=== PATIENT | male | born 1935 | race Caucasian/White ===

== ENCOUNTER 2018-07-24 12:49 | Inpatient (IN) | payer MEDICARE, OTHER ==
[~2018-07-24] VITALS: Ht 177.8 cm; Wt 79.1 kg
--- NOTE | ~2018-07-24 | HEMODYNAMI ---
PATIENT:CELINA EID MEDICAL RECORD: [id number] : 37 LOCATION:[facility] [address] [id number] ADMISSION DATE: 07/24/18 Generatedon:07/29/20189:16 Patient name: CELINA EID Patient #: [id number] SSN: : 1935 Date of study: 07/29/2018 Page: Of Hemodynamic Procedure Report Patient Data Patient Demographics Procedure consent was obtained First Name: CELINA Gender: Male Last Name: STANTON : 1935 Patient #: [id number] Age: 83 year(s) Race: Unknown Additional ID: [id number] Contact details Address: [address] [place] [address] State: [place] City: [place] Zip code: [address] Past Medical History Allergies: No known allergies Admission Admission Data Admission Date: 07/24/2018 Admission Time: 15:14 Room #: [facility] Lab Results Lab Result Date: 07/29/2018 Lab Result Time: 0:00 Biochemistry Name Units Result Min Max BUN mg/dl 44 --(----)-* 7 18 Creatinine mg/dl 1.4 --(----)*- 0.6 1.3 CBC Name Units Result Min Max Hemoglobin g/dl 16.7 --(---*)-- 13.5 17.5 Procedure Procedure Types Cath Procedure Diagnostic Procedure [facility] Coronaries only Procedure Description Procedure Date Procedure Date: 07/29/2018 Procedure Start Time: 8:59 Procedure End Time: 9:11 Procedure Staff Name Function Adelso Rahman MD Performing Physician Terence Shanks RN Nurse Emleina Mcknight RT Scrub Nadine Kwon RN Nurse French Bello RT Monitor Procedure Data Cath Procedure Fluoroscopy Diagnostic fluoroscopy Total fluoroscopy Time: 3.4 time: 3.4 min min Diagnostic fluoroscopy Total fluoroscopy dose: 655 dose: 655 mGy mGy Contrast Material Contrast Material Type Amount (ml) Isovue 300 47 Entry Location Entry Primary Successful Side Size Upsize Upsize Entry Closure Succes sful Closure Location (Fr) 1 (Fr) 2 (Fr) Remarks Device Remarks Femoral Left 5 Fr Exoseal artery Estimated blood loss: 5 ml Diagnostic catheters Device Type Used For End Catheter Placement MULTIPACK JL 4.0 5Fr Procedure catheter MULTIPACK 3DRC 5Fr Procedure catheter MULTIPACK Pigtail 5 Fr Procedure catheter Procedure Complications No complications Procedure Medications Medication Administration Route Dosage Oxygen 6 l/min Lidocaine 2% added to field 20 Heparin Flush Bag added to field 2 bags (1000units/500ml NS) 0.9% NaCl I.V. 50 ml/hr Versed I.V. 2 mg Fentanyl I.V. 100 mcg Hemodynamics Rest HGB: 16.7 (g/dl) Heart Rate: 113 (bpm) Snapshots Pre Cath Intra NCS Post Cath Vital Signs Time Heart Resp SPO2 etCO2 NIBP Rhythm Pain Sedation Rate (ipm) (%) (mmHg) (mmHg) Status Level (bpm) 8:33:36 112 37 94 0 85/47(58) A-Fib 0 (11) 10(A) , No pain 8:37:34 120 28 94 0 94/61(73) A-Fib 0 (11) 10(A) , No pain 8:41:34 109 31 94 0 89/68(80) A-Fib 0 (11) 10(A) , No pain 8:45:33 105 29 90 0 98/60(79) A-Fib 0 (11) 10(A) , No pain 8:49:35 114 27 92 0 93/68(81) A-Fib 0 (11) 10(A) , No pain 8:53:33 115 32 94 0 94/72(85) A-Fib 0 (11) 10(A) , No pain 8:57:32 112 23 94 0 100/60(77) A-Fib 0 (11) 10(A) , No pain 9:01:32 118 28 94 0 98/73(84) A-Fib 0 (11) 10(A) , No pain 9:05:36 115 24 93 0 85/57(72) A-Fib 0 (11) 9(A) , No pain 9:09:35 112 22 92 0 76/59(67) A-Fib 0 (11) 9(A) , No pain Medications Time Medication Route Dose Verified Delivered Reason Notes Effe ctiveness by by 8:30:22 Oxygen NC-high 6 Adelso Mccoy used for flow l/min St Skinny Kwon procedure RN 8:30:43 Lidocaine 2% added 20ml Adelso Darden for local to vial [facility] anesthetic field MD MORENO 8:30:53 Heparin Flush added 2 Adelso Darden used for Bag to bags [facility] procedure (1000units/500ml field MD MORENO NS) 8:40:12 0.9% NaCl I.V. 50 Adelso Darden Per ml/hr [facility] physician MD MORENO 8:58:00 Versed I.V. 2 mg Terence Terence for Lorigan Lorigan sedation RN RN 8:58:08 Fentanyl I.V. 100 Terence Terence for mcg Lorigan Lorigan sedation RN barrel assembly inspector Log Time Note 8:10:46 Pelon Chen RT(R) sent for patient. Start room use. 8:10:47 Time tracking: Regular hours (M-F 7:00 - 5:00) 8:10:50 Plan of Care:Hemodynamics will remain stable., Cardiac rhythm will remain stable., Comfort level will be maintained., Respiratory function will remain adequate., Patient/ family verbilizes understanding of procedure., Procedure tolerated without complication., Recovers from procedure without complications.. 8:10:53 Signed procedure consent form obtained from patient. 8:10:55 Diagnostic Cath status Elective 8:11:04 H&P Date Dictated: 07/24/2018 Within 30 days and on chart.. 8:11:13 Patient allergic to No known allergies 8:11:52 Lab Result : Hemoglobin 16.7 g/dl 8:11:52 Lab Result : Creatinine 1.4 mg/dl 8:11:52 Lab Result : BUN 44 mg/dl 8:25:47 Patient received from ICU to CCL 2 Alert and oriented. Tansferred to table in Supine position. 8:25:48 Correct patient and procedure confirmed by team. 8:25:48 Warm blankets applied, and tony hugger turned on for patient comfort. 8:25:49 ECG and BP/O2 sat monitors applied to patient. 8:30:22 Oxygen 6 l/min NC-high flow was administered by Nadine Kwon RN; used for procedure; 8:30:43 Lidocaine 2% 20ml vial added to field was administered by Adelso Rahman MD; for local anesthetic; 8:30:53 Heparin Flush Bag (1000units/500ml NS) 2 bags added to field was administered by Adelso Rahman MD; used for procedure; 8:31:10 Vital chart was started 8:35:12 Baseline sample Acquired. 8:35:25 Rhythm: sinus tachycardia 8:35:27 Full Disclosure recording started 8:35:28 Pre-op teaching completed and patient verbalized understanding. 8:35:28 Pre-procedure instructions explained to patient. 8:35:30 Family in waiting room. 8:35:31 Patient NPO since Midnight. 8:35:32 Is the patient allergic to Iodine/contrast media? No. 8:35:33 Is patient on blood thinner?No 8:35:35 Patient diabetic? No. 8:35:37 Previous problem with sedation/anesthesia? No ? 8:35:38 Snore? No 8:35:39 Deviated septum? No 8:35:39 Sleep apnea? No 8:35:40 Opens mouth fully? Yes 8:35:41 Sticks out tongue? Yes 8:35:43 Airway obstruction? No ? 8:35:44 Dentures? No ? 8:35:51 Pre procedure: left dorsailis pedis pulse 1+ Palpable, but thready & weak; easily obliterated 8:35:53 Patient pain scale 0/10 ?. 8:35:57 IV patent on arrival in right forearm with 0.9% NaCl at [facility]. 8:36:08 Lab results completed and on chart. 8:36:10 Left groin area was prepped with chlora-prep and draped in sterile fashion 8:36:11 Alarms reviewed by R. N. 8:36:12 Sharps counted by scrub and verified by R.N. 8:36:15 ACIST Syringe (64604) opened to sterile field. 8:36:15 Use device set Femoral Dx 8:36:16 Bag Decanter () opened to sterile field. 8:36:17 ACIST Manifold (34217) opened to sterile field. 8:36:17 ACIST Hand Control (58807) opened to sterile field. 8:36:18 Tegaderm 4 x 4 (1626W) opened to sterile field. 8:36:19 SHEATH 5FR Delphi ([id number]) opened to sterile field. 8:36:20 Medline Cath Pack (TIOC08624) opened to sterile field. 8:36:21 DIAGNOSTIC Multipack 5Fr catheter set (PT7553) opened to sterile field. 8:40:12 0.9% NaCl 50 ml/hr I.V. was administered by Adelso Rahman MD; Per physician; 8:44:43 Zero performed for pressure channel P1 8:44:49 Zero performed for pressure channel P1 8:57:19 Final Timeout: patient, procedure, and site verified with staff and physician. All members of the team are in agreement. 8:57:19 --------ALL STOP TIME OUT------ 8:57:19 Physician arrived 8:57:21 Left groin site verified by team. 8:57:28 Physical assessment completed. ASA score P 3 - A patient with severe systemic disease as per Adelso Rahman MD. 8:57:31 Sedation plan: IV Moderate Sedation Medication:Versed, Fentanyl 8:58:00 Versed 2 mg I.V. was administered by Terence Shanks RN; for sedation; 8:58:08 Fentanyl 100 mcg I.V. was administered by Terence Shanks RN; for sedation; 8:59:27 Procedure started. 8:59:31 Local anesthetic to left femerol artery with Lidocaine 2% by Adelso Rahman MD.INITIAL ACCESS ONLY 8:59:38 A 5 Fr sheath was inserted into the Left Femoral artery 9:00:08 DIAGNOSTIC WIRE .035 260cm J wire (757937) opened to sterile field. 9:00:14 A MULTIPACK JL 4.0 5Fr catheter was advanced over the wire and used for Procedure. 9:01:17 LCA angiography performed. 9:02:28 Catheter exchanged over wire. 9:02:33 A MULTIPACK 3DRC 5Fr catheter was advanced over the wire and used for Procedure. 9:03:29 RCA angiography performed. 9:04:54 Catheter exchanged over wire. 9:05:11 A MULTIPACK Pigtail 5 Fr catheter was advanced over the wire and used for Procedure. 9:07:05 Catheter removed, unable to cross valve. 9:07:15 Contrast amount:Isovue 300 47ml. 9:07:25 EXOSEAL 5Fr (EX500) opened to sterile field. 9:07:31 Sheath removed intact; hemostasis achieved with Exoseal to the Left Femoral artery. 9:07:35 Procedure ended.(Physican Out) 9:07:57 Fluoroscopy time 03.40 minutes. 9:08:05 Fluoroscopy dose: 655 mGy 9:08:05 Flurop Dose total: 655 9:08:08 Insertion/operative site no bleeding no hematoma. 9:08:08 Sharps counted by scrub and verified by R.N. 9:08:11 Post-op/insertion site Left Femoral artery dressed using a 4 x 4 and Tegaderm. 9:08:14 Post left femerol artery:stable, soft, clean and dry 9:08:16 Post Procedure Pulses reassessed and unchanged 9:08:17 Post-procedure physical assessment completed. ASA score P 3 - A patient with severe systemic disease as per Adelso Rahman MD. 9:08:19 Post procedure rhythm: unchanged. 9:08:22 Estimated blood loss: 5 ml 9:09:15 Patient needs reinforcement of post procedure teaching. 9:09:15 Post procedure instruction explained to patient.Patient verbalizes understanding. 9:09:26 Procedure type changed to Cath procedure, Diagnostic procedure, LHC, Coronaries only 9:11:28 Procedure and supply charges have been captured, reviewed, submitted and are correct. 9:11:31 Procedure Complication : No complications 9:11:33 See physician's report for complete and final results. 9:11:33 Vital chart was stopped 9:11:43 Report given to ICU. 9:11:53 Patient transfered to ICU with Stretcher. 9:11:55 Full Disclosure recording stopped 9:11:55 Procedure ended. 9:12:50 End room use (Document Last) Device Usage Item Name Manufacture Quantity Catalog Hospital Part Current Minimal L ot# / Number Charge Number Stock Stock Serial# Code ACIST Acist 1 08903 625057 010148 120633 20 Syringe Medical (63730) Systems Inc Bag Microtek 1 180412 10717 619114 5 Decanter Medical Inc. () ACIST Hand Acist 1 15477 543415 846693 459443 5 Control Medical (36176) Systems Inc ACIST Acist 1 61998 783727 616004 694639 5 Manifold Medical (99948) Systems Inc Tegaderm 4 3M 1 1626W 387676 347002 104185 5 x 4 (1626W) SHEATH 5FR Terumo 1 [id number] 664478 588333 323502 5 Delphi (ZET665) Medline Medline 1 [id number] 756245 78708 365876 5 Cath Pack ([id number]) DIAGNOSTIC Cardinal 1 OX7705 232781 57052 854623 30 Multipack Health 5Fr catheter set (GA4337) DIAGNOSTIC St Eris 1 106105 386072 013449 240233 30 WIRE .035 260cm J wire (522001) MULTIPACK Cardinal 1 922589 5 JL 4.0 5Fr Health catheter MULTIPACK Cardinal 1 003505 5 3DRC 5Fr Health catheter MULTIPACK Cardinal 1 085380 5 Pigtail 5 Health Fr catheter EXOSEAL 5Fr Cardinal 1 EX500 798456 696913 831369 10 (EX500) Health Signature Audit [place] Stage Time Signature Unsigned Intra-Procedure 07/29/2018 French Bello 9:16:24 AM RT(R) Signatures Monitor : French Bello RT Signature : Date : Time : [facility] [address] [place], [place] [address]
[2018-07-24] MEDS ORDERED: LOPRESSOR25 MG PO (12:59)
[2018-07-24] MEDS ORDERED: ELIQUIS5 MG PO (12:59)
[2018-07-24] MEDS ORDERED: FLOMAX0.4 MG PO (13:00)
[2018-07-24] MEDS ORDERED: VITAMIN B-12100 MCG PO (13:00)
[2018-07-24 14:17] LABS: APTT 27.6 SECONDS (22.8-39.4)
[2018-07-24 14:18] LABS: INR 1.72 (0.85-1.17); PROTIME 19.5 SECONDS (11.6-15.0)
[2018-07-24 14:31] LABS: BASOPHILS 0.1 % (0-2); EOSINOPHILS 0 % (0-7); HEMATOCRIT 39.7 % (42.0-54.0); HEMOGLOBIN 13.4 g/dL (13.5-17.5); IMMATURE GRANULOCYTES 0.5 % (0-5); LYMPHOCYTES 1.8 % (15-50); MCH 32.6 pg (26.0-34.0); MCHC 33.8 g/dL (31.0-37.0); MCV 96.6 fL (80.0-100.0); MEAN PLATELET VOLUME 11.6 fL (7.4-10.4); NEUTROPHILS 95.6 % (40-80); PLATELET COUNT 385 10x3/uL (130-400); RBC 4.11 10x6/uL (4.20-6.10); RDW 13.6 % (11.5-14.5); WBC 16.5 10x3/uL (4.8-10.8)
[2018-07-24 14:44] LABS: ALBUMIN 2.4 g/dL (3.4-5.0); ALKALINE PHOSPHATASE 75 U/L (46-116); ALT (SGPT) 63 U/L (10-68); BILIRUBIN - TOTAL 1.44 mg/dL (0.2-1.3); CALC OSMOLALITY 288 mosm/kg (275-300); CARBON DIOXIDE 24.6 mmol/L (21.0-32.0); CHLORIDE - SERUM 103 mmol/L (98-107); CREATININE - SERUM 1.2 mg/dL (0.6-1.3); GLUCOSE 178 mg/dL (74-106); POTASSIUM - SERUM 4.2 mmol/L (3.5-5.1); PROTEIN - SERUM 6.3 g/dL (6.4-8.2); SODIUM 139 mmol/L (136-145); UREA NITROGEN 32 mg/dL (7-18); eGFR NON AFRICAN AMERICAN 61 mL/min (90-120)
[2018-07-24 15:02] LABS: CKMB 0.4 U/L (0.0-3.6); CREATINE KINASE 70 UL (21-232)
[2018-07-24 15:05] LABS: TROPONIN-I 0.126 ng/mL (0.000-0.060)
--- NOTE | 2018-07-24 17:05 | NUR ---
OLGA COMPLETED AT 1706.
--- NOTE | 2018-07-24 17:14 | MORECARE ---
CASE MANAGEMENT DISCHARGE SUMMARY PATIENT: CELINA EID UNIT: [id number] ADM DATE: 07/24/18 AGE: 83 : 36 SEX: M ROOM/BED: D.E09 AUTHOR: MEGHAN KURTZ PHYSICIAN: REFERRING PHYSICIAN: EDWIGE MERCADO MD DATE OF SERVICE: 07/24/18 Discharge Plan Patient Name: CELINA EID Facility: [facility]:[place] : 1935 Planned Disposition: Anticipated Discharge Date: Discharge Date: Expected LOS: Initial Reviewer: [email or web address] Initial Review Date: 07/24/2018 Generated: 07/24/18 6:14 pm Patient Name: CELINA EID Page 46699 at 1714 All edits/amendments must be made on the electronic document DICTATION DATE: 07/24/181712 CAUSTIC LOADER: DULCE MARIA 07/24/181712 RPT#: [id number] DC DATE: STATUS: ADM IN [facility] [address] [place] [address] END OF REPORT
[2018-07-24 17:45] VITALS: BP 108/82; BMI 27.7
[2018-07-24] MEDS ORDERED: BAYER CHEWABLE81 MG PO (17:59)
[2018-07-24] MEDS ORDERED: VITAMIN E400 UNI2 PO (17:59)
[2018-07-24] MEDS ORDERED: XALATAN 0.0052.5 ML EACH EYE (18:00)
[2018-07-24] MEDS ORDERED: TENORMIN25 MG (18:00)
[2018-07-24 19:00] VITALS: BP 98/77
--- NOTE | 2018-07-24 19:00 | NUR ---
FAMILY AT BEDSIDE, PT AND FAMILY VERY UPSET THAT CARDIAC ISSUE IS NOT BEING ADRESSED INSTEAD OF PNEUMONIA. THERAPUTIC COMMUNICATION WAS USED TO ASSURE FAMILY THAT PTS CARIDAC ISSUE WOULD BE ADDRESSED, AND IF THEY COULD HAVE PTS FIELD OPERATIONS TECHNICIAN FAX PTS INFO TO THE ICU WE WOULD HAVE PHYSICIANS LOOK AT IT TO DETERMIN BEST CARE, PT WAS TO HAVE A MITCHELL WITH CARDIO CONVERSION ON THE , PT WAS UNABLE TO GO WHERE FIELD OPERATIONS TECHNICIAN IS IN [place] BECAUSE THERE WERE NO ROOMS AVAILABLE, FIELD OPERATIONS TECHNICIAN TOLD PT TO GO HOSPITAL IN [place] AND TERRAL TRANSFERED HERE FOR HIGHER LEVEL OF CARE. I SPOKE AT LENGTH WITH FAMILY ABOUT PT CONDITION AND ASSURED THEM WE WILL DO EVERYTHING POSSIBLE TO HELP WITH ALL OF PTS MEDICAL NEEDS, FAMILY AND PT SEEMED TO FEEL BETTER AFTER A VERY LENGTHY TALK. WILL CONTINUE TO COMFORT AND KEEP FAMILY AND PT INFORMED.
[2018-07-24 20:00] VITALS: BP 97/78
[2018-07-24 21:00] VITALS: BP 98/70
[2018-07-24 21:49] LABS: APPEARANCE CLEAR (CLEAR); BILIRUBIN NEGATIVE (NEGATIVE); COLOR YELLOW (YELLOW); GLUCOSE NEGATIVE (NEGATIVE); KETONE NEGATIVE (NEGATIVE); NITRITE NEGATIVE (NEGATIVE); PROTEIN NEGATIVE (NEGATIVE); SPECIFIC GRAVITY 1.015 (1.005-1.020); UROBILINOGEN NORMAL (NORMAL)
[2018-07-24 21:50] LABS: RED CELLS - URINE 25-50 /hpf (0-5); WHITE CELLS - URINE 0-5 /hpf (0-5)
[2018-07-24 22:00] VITALS: BP 97/59
--- NOTE | 2018-07-24 22:00 | NUR ---
PT RESTING, PT STATES THE ROOM TEMP IS NOT HE WOULD LIKE, I HAVE ADJUSTED SEVERAL TIMES WILL KEEP TRYING TO MAKE PT COMFORTABLE POSSIBLE, ALL NEEDS WERE MET THIS TIME, WILL CONTINUE TO MONITOR.
[2018-07-24 23:00] VITALS: BP 87/67
[2018-07-25] VITALS (23 sets, daily range): BP systolic 87–129; BP diastolic 9–93; BMI 27.6
[2018-07-25 04:25] LABS: HEMATOCRIT 38.3 % (42.0-54.0); HEMOGLOBIN 12.9 g/dL (13.5-17.5); LYMPHOCYTES 2.1 % (15-50); MCH 32.6 pg (26.0-34.0); MCHC 33.7 g/dL (31.0-37.0); MCV 96.7 fL (80.0-100.0); MEAN PLATELET VOLUME 9.5 fL (7.4-10.4); NEUTROPHILS 93.7 % (40-80); PLATELET COUNT 359 10x3/uL (130-400); RBC 3.96 10x6/uL (4.20-6.10); RDW 13.8 % (11.5-14.5); WBC 19.4 10x3/uL (4.8-10.8)
[2018-07-25 04:48] LABS: ALBUMIN 2.1 g/dL (3.4-5.0); ANION GAP 10.6 mmol/L (8-16); BILIRUBIN - TOTAL 1.24 mg/dL (0.2-1.3); CALCIUM 7.9 mg/dL (8.5-10.1); CARBON DIOXIDE 29.2 mmol/L (21.0-32.0); CREATININE - SERUM 1.3 mg/dL (0.6-1.3); MAGNESIUM - SERUM 2.2 mg/dL (1.8-2.4); POTASSIUM - SERUM 3.8 mmol/L (3.5-5.1); PROTEIN - SERUM 5.6 g/dL (6.4-8.2)
--- NOTE | 2018-07-25 05:46 | NUR ---
VSS NO S/S OF DISTRESS, PT STATES HE HASNT SLEPT THIS GOOD IN A LONG TIME, MEDS GIVEN, LOPEZ EMPTIED, IV'S CLEARED, ALL SAFETY MEASURES IN PLACE, WILL CONTINUE TO MONITOR.
--- NOTE | 2018-07-25 07:30 | NUR ---
SHIFT REPORT RECEIVED. AWAKE AND ALERT. DENIES CHEST PAIN AT THIS TIME. ON 6L OF O2 VIA HIGH FLOW NC. HAS 20G PIV ON L-AC WITH NS AT 30ML/HR. LOPEZ WITH YELLOW URINE NOTED. SOB NOTED ON EXERTION. STATES THAT HE GETS ANXIOUS AT TIMES AND GETS SOB. HR IRREGULAR AT THIS TIME. CARDIOLOGY HAS BEEN CONSULTED. WILL NOTIFY OFFICE. SHIFT ASSESSMENT COMPLETED. WILL CONTINUE TO MONITOR.
--- NOTE | 2018-07-25 08:20 | NUR ---
CARDIOLOGY HAS BEEN NOTIFIED OF CONSULT.
--- NOTE | 2018-07-25 10:11 | NUR ---
NO BUMEX AVAILABLE IN UNIT. PHARMACY NOTIFIED. SPOKE WITH ANALIA. WILL BRING ONE UP.
--- NOTE | 2018-07-25 10:29 | NUR ---
BUMEX INTIATED AT THIS TIME AT 5ML/HR PER ORDERS.
--- NOTE | 2018-07-25 11:15 | NUR ---
PT RESTING AT THIS TIME, WILL CON'T TO MONITOR
--- NOTE | 2018-07-25 13:30 | NUR ---
NO NEEDS NOTED, WILL CON'T TO MONITOR
--- NOTE | 2018-07-25 15:30 | NUR ---
REASSESSMENT COMPLETE, NO CHANGES NOTED, WILL CON'T TO MONITOR
--- NOTE | 2018-07-25 15:44 | MORECARE ---
CASE MANAGEMENT DISCHARGE SUMMARY PATIENT: CELINA EID UNIT: [id number] ADM DATE: 07/24/18 AGE: 83 : 36 SEX: M ROOM/BED: D.2312 AUTHOR: MEGHAN KURTZ PHYSICIAN: REFERRING PHYSICIAN: EDWIGE MERCADO MD DATE OF SERVICE: 07/25/18 Discharge Plan Patient Name: CELINA EID Facility: [facility]:[place] : 1935 Planned Disposition: Home Health Service Anticipated Discharge Date: Discharge Date: Expected LOS: Initial Reviewer: [email or web address] Initial Review Date: 07/25/2018 Generated: 07/25/18 4:44 pm DCPIA - Discharge Planning Initial Assessment Updated by [email or web address]: Mojgan Romero on 07/25/18 3:43 pm * Is the patient Alert and Oriented? Yes * How many steps to enter\\exit or inside your home? * PCP can't remember his name. "He is in [place]" * Pharmacy [facility] * Preadmission Environment Home Alone * ADLs Independent * Other Equipment WALKER, CANE, CRUTCHES, * List name and contact numbers for known caregivers / representatives who currently or will assist patient after discharge: ANGELLA - DOESN'T REMEMBER NUMBER * Verbal permission to speak to the caregivers and representatives has been obtained from the patient. N/A * Community resources currently utilized Home Health * Please name any agencies selected above. HE STATES HE IS BEING SEEN BY HH BUT UNSURE OF PROVIDER. * Additional services required to return to the preadmission environment? No * Can the patient safely return to the preadmission environment? Yes * Has this patient been hospitalized within the prior 30 days at any hospital? Yes Last DP export: 07/24/18 4:14 pm Patient Name: CELINA EID Page 30701 at 1544 All edits/amendments must be made on the electronic document DICTATION DATE: 07/25/18 154 TELEVISION INSPECTOR: DULCE MARIA 07/25/18 154 RPT#: [id number] DC DATE: STATUS: ADM IN [facility] [address] [place] [address] END OF REPORT
--- NOTE | 2018-07-25 15:56 | MORECARE ---
CASE MANAGEMENT DISCHARGE SUMMARY PATIENT: CELINA EID UNIT: [id number] ADM DATE: 07/24/18 AGE: 83 : 36 SEX: M ROOM/BED: D.2312 AUTHOR: TESSIEDOC PHYSICIAN: REFERRING PHYSICIAN: EDWIGE MERCADO MD DATE OF SERVICE: 07/25/18 Discharge Plan Patient Name: CELINA EID Facility: [facility]:[place] : 1935 Planned Disposition: Home Health Service Anticipated Discharge Date: Discharge Date: Expected LOS: Initial Reviewer: [email or web address] Initial Review Date: 07/25/2018 Generated: 07/25/18 4:56 pm Comments DCP- Discharge Planning Updated by [email or web address]: Mojgan Romero on 07/25/18 2:[address] Patient Name: CELINA EID Admission Status: ER Accout number: [id number] Admission Date: 07-24-2018 : 1935 Admission Diagnosis: Attending: EDWIGE MERCADO Current LOS: 1 Anticipated DC Date: Planned Disposition: Home Health Service Primary Insurance: MEDICARE A & B Discharge Planning Comments: CM met with patient at bedside. Patient states he lives alone and plans to return to his home upon discharge. Patient states he has been admitted in [place] within last 30days for shortness of breath and pneumonia. Patient states that he does have Home Health Services but is unsure of provider. He states they have seen him 3 times. He plans on them resuming care. CM will continue to follow and assist as needed with discharge planning / needs. Refrigeration System Installer: Mojgan Romero DCPIA - Discharge Planning Initial Assessment Updated by [email or web address]: Mojgan Romero on 07/25/18 3:43 pm * Is the patient Alert and Oriented? Yes * How many steps to enter\\exit or inside your home? * PCP can't remember his name. "He is in [place]" * Pharmacy [facility] * Preadmission Environment Home Alone * ADLs Independent * Other Equipment WALKER, CANE, CRUTCHES, * List name and contact numbers for known caregivers / representatives who currently or will assist patient after discharge: ANGELLA - DOESN'T REMEMBER NUMBER * Verbal permission to speak to the caregivers and representatives has been obtained from the patient. N/A * Community resources currently utilized Home Health * Please name any agencies selected above. HE STATES HE IS BEING SEEN BY HH BUT UNSURE OF PROVIDER. * Additional services required to return to the preadmission environment? No * Can the patient safely return to the preadmission environment? Yes * Has this patient been hospitalized within the prior 30 days at any hospital? Yes Last DP export: 07/24/18 4:14 pm Patient Name: CELINA EID Page [id number] at 1556 All edits/amendments must be made on the electronic document DICTATION DATE: 07/25/181555 CUSTOMER ACCOUNT MANAGER: DULCE MARIA 07/25/181555 RPT#: [id number] DC DATE: STATUS: ADM IN [facility] [address] [place] [address] END OF REPORT
--- NOTE | 2018-07-25 20:47 | NUR ---
pt sitting in bed watching tv, no s/s of distress call light in reach vss, water provided, bain emptied pt postitioned for comofort all needs met at this time, will continue to monitor.
[2018-07-26] VITALS (13 sets, daily range): BP systolic 63–111; BP diastolic 40–92; Ht 177.8 cm; Wt 79.1 kg
--- NOTE | 2018-07-26 | NUR ---
pt resting well all needs met, vss will continue to monitor
[2018-07-26 02:46] LABS: HEMATOCRIT 44.7 % (42.0-54.0); HEMOGLOBIN 15.3 g/dL (13.5-17.5); MCH 32.9 pg (26.0-34.0); MCHC 34.2 g/dL (31.0-37.0); MCV 96.1 fL (80.0-100.0); MEAN PLATELET VOLUME 10.1 fL (7.4-10.4); PLATELET COUNT 411 10x3/uL (130-400); RBC 4.65 10x6/uL (4.20-6.10); RDW 13.4 % (11.5-14.5); WBC 20.6 10x3/uL (4.8-10.8)
[2018-07-26 02:52] LABS: ALBUMIN 2.4 g/dL (3.4-5.0); ANION GAP 11.8 mmol/L (8-16); BILIRUBIN - TOTAL 2.04 mg/dL (0.2-1.3); CALCIUM 8.2 mg/dL (8.5-10.1); CARBON DIOXIDE 33.6 mmol/L (21.0-32.0); CREATININE - SERUM 1.2 mg/dL (0.6-1.3); POTASSIUM - SERUM 3.4 mmol/L (3.5-5.1); PROTEIN - SERUM 6.5 g/dL (6.4-8.2)
[2018-07-26 02:57] LABS: MAGNESIUM - SERUM 1.6 mg/dL (1.8-2.4)
[2018-07-26 03:19] LABS: LYMPHOCYTES 5 % (15-50); MONOCYTES 3 % (2-11); NEUTROPHILS 89 % (40-80); PLATELET ESTIMATE NORMAL
[2018-07-26 05:15] LABS: VANCOMYCIN - TROUGH 18.3 ug/mL (10.0-20.0)
--- NOTE | 2018-07-26 06:04 | NUR ---
vss no s/s of distress all safety measures in place, positioned for comfort will continue to monitor
--- NOTE | 2018-07-26 07:10 | NUR ---
REPORT RECIEVED FROM SBA BUSINESS DEVELOPMENT OFFICER. PATIENT LAYING IN BED ON BACK. HOB ELEVATED 30 DEGREES. VITAL SIGNS ARE GOOD. PATEINT SOB WITH EXERTION. PATIENT COMPLAINS OF LOW BACK PAIN. REPOSTIONED PATIENT TO RIGHT SIDE AND PATIENT STATES MUCH BETTER.
--- NOTE | 2018-07-26 08:00 | NUR ---
PATIENT RESTING COMFORTABLY. PATIENT DENIES ANY NEEDS OR COMPLAINTS. ASSESMENT COMPLETED. WILL CONTINUE TO MONITOR CLOSELY.
--- NOTE | 2018-07-26 11:00 | NUR ---
REASSESSMENT COMPLETED. PATIENT REPOSITONED FOR COMFORT. WILL CONTINUE TO MONITOR.
--- NOTE | 2018-07-26 14:00 | NUR ---
PATIENT LAYING IN BED VISITING WITH FAMILY. ASNWERED QUESTIONS FOR FAMILY TO SATISFACTION. PATIENT REPOSITIONED FOR CONMFORT. SR UP X 2 BED IN LOW POSTION AND CALL LIGHT IN REACH.
--- NOTE | 2018-07-26 16:00 | NUR ---
PATIENT LAYING IN BED ON RT SIDE. FAMILYH AT BED SIDE. APTIENT DENIES ANY NEEDS OR PAIN. WILL CONTINUE TO MONITOR.
--- NOTE | 2018-07-26 19:00 | NUR ---
REPORT GIVEN TO REAL ESTATE SALES SUPERVISOR. PATIENT LAYING IN BED WITH EYES CLOSED AND BREATHING EVENLY. SR UP X 2, BED IN LOW POSITION AND CALL LIGHT IN REACH.
--- NOTE | 2018-07-26 19:15 | NUR ---
SHIFT ASSESSMENT COMPLETE. PT IS A&O X4 WITH NO COMPLAINTS OF PAIN OR DISCOMFORT AT THIS TIME. HR 126, UNCONTROLLED A-FIB. S1S2 AUDIBLE, CRACKLES HEARD BILAT THROUGHOUT ALL LOBES. ABD FLAT, BS ACTIVE X4. RADIAL AND PEDAL PULSES PALP. LOPEZ CATH INTACT DRAINING CLEAR YELLOW URINE. SCDS ON AND FUNCTIONING. L AC PIV INFUSING BUMEX @ 5 ML/HR AND VANC @ 125 ML/HR. REPOSITIONED FOR COMFORT. HE DENIES ANY NEEDS AT THIS TIME. WILL CONT WITH POC.
--- NOTE | 2018-07-26 21:00 | NUR ---
FAMILY AT BEDSIDE. REFILLED REFRESHMENTS. ANSWERED ALL QUESTIONS. PT DENIES ANY NEEDS AT THIS TIME. VSS. WILL CONT WITH POC.
--- NOTE | 2018-07-26 23:15 | NUR ---
REASSESSMENT COMPLETE. NO CHANGES IN PT CONDITION. HE IS IN GOOD SPIRITS AND DENIES ANY PAIN OR DISCOMFORT. RESITED PIV TO RIGHT FA, 20 G. BUMEX AND NS INFUSING. D/C'D PIV TO L AC. WILL CONT TO MONTIOR CLOSELY.
[2018-07-27] VITALS (23 sets, daily range): BP systolic 75–106; BP diastolic 45–78
--- NOTE | 2018-07-27 01:10 | NUR ---
PT RESTING PEACEFULLY WITH NO SIGNS OF PAIN OR DISCOMFORT. VSS. WILL CONT TO MONITOR.
--- NOTE | 2018-07-27 03:10 | NUR ---
REASSESSMENT COMPLETE. COMPLETE LINEN CHANGE PROVIDED. PT TOLERATED WELL. NO CHANGES IN PT CONDITION. VSS. REFRESHMENTS PROVIDED. WILL CONT WITH POC.
[2018-07-27 04:31] LABS: BASOPHILS 0.3 % (0-2); HEMOGLOBIN 17.4 g/dL (13.5-17.5); IMMATURE GRANULOCYTES 1.1 % (0-5); LYMPHOCYTES 6.1 % (15-50); MCH 33.1 pg (26.0-34.0); MCHC 34.1 g/dL (31.0-37.0); MEAN PLATELET VOLUME 10.5 fL (7.4-10.4); MONOCYTES 5.7 % (2-11); NEUTROPHILS 85.8 % (40-80); PLATELET COUNT 437 10x3/uL (130-400); RBC 5.26 10x6/uL (4.20-6.10); RDW 13.4 % (11.5-14.5); WBC 19.9 10x3/uL (4.8-10.8)
[2018-07-27 04:52] LABS: ALBUMIN 2.3 g/dL (3.4-5.0); ANION GAP 12.5 mmol/L (8-16); BILIRUBIN - TOTAL 3.87 mg/dL (0.2-1.3); CALCIUM 8.1 mg/dL (8.5-10.1); CARBON DIOXIDE 34.3 mmol/L (21.0-32.0); CREATININE - SERUM 1.3 mg/dL (0.6-1.3); MAGNESIUM - SERUM 1.9 mg/dL (1.8-2.4); POTASSIUM - SERUM 3.8 mmol/L (3.5-5.1); PROTEIN - SERUM 6.9 g/dL (6.4-8.2)
--- NOTE | 2018-07-27 05:00 | NUR ---
PT RESTING. VSS. WILL CONT WITH POC.
--- NOTE | 2018-07-27 07:15 | NUR ---
REPORT RECIEVED FROM NIGHT NURSE . PATIENT LAYING IN BED RESTING COMFORTABLY. SR UP X 2 BED IN LOW POSITION AND CALL LIGHT IN REACH. WILL CONTINUE TO MONITOR TO CLOSELY.
--- NOTE | 2018-07-27 07:30 | NUR ---
PATIENT SITTING UP WATCHING TV. ASSESMENT COMPLETED. PATIENT DENIES ANY NEEDS OR PAIN. WILL CONTINUE WITH PLAN OF CARE. SAFETY MEASURES IN PLACE.
--- NOTE | 2018-07-27 11:00 | NUR ---
PATIENT UP TO BEDSIDE CHAIR PER PT. PATIENT TOLERATING WELL AND STATES VERY HAPPY TO BE UP. WILL CONTINUE TO MONITOR. CALL LIGHT IN REACH.
--- NOTE | 2018-07-27 11:45 | NUR ---
DR VARNER TO ROOM. PATIENT BP83/54. NO NEW ORDERS RECIEVED. WILL CONTINUE TO MONITOR.
--- NOTE | 2018-07-27 13:30 | NUR ---
PATIENT BACK TO BED PER PATIENT REQUEST.PATIENT LAYING IN RIGHT SIDE. SR UP X 2 CALL LIGHT IN REACH. WILL CONTINUE TO MONITOR.
--- NOTE | 2018-07-27 15:00 | NUR ---
REASSESMENT COMPLETED. PATIENT STABLE AND UNCHANGED.
--- NOTE | 2018-07-27 17:45 | NUR ---
PATIENT SITTING UP TO BEDSIDE EATING SUPPER AND VISITING WITH FAMILY. VITAL SIGNS GOOD. BP LOW AT 98/63. PATIENT DENIES ANY FATIGUE, SOB OR DIZZINESS. PRIOR NOTATION, DR. VARNER AWARE OF HYPOTENSION AND NO NEW ORDERS RECEIVED PER EARLIER UNIT VISIT.
--- NOTE | 2018-07-27 19:30 | NUR ---
ASSESSMENT COMPLETE, PER NURSING FLOWSHEET, PATIENT REPOSITIONED, C/L IN REACH
--- NOTE | 2018-07-27 21:00 | NUR ---
PATIENT REPOSITIONED, NO OTHER NEEDS VOICED OR NOTED AT THIS TIME
--- NOTE | 2018-07-27 23:00 | NUR ---
PATIENT RE-ASSESSMENT COMPLETE, PER NURSING FLOWSHEET, PATIENT REPOSITIONED, C/L IN REACH
[2018-07-28] VITALS (25 sets, daily range): BP systolic 72–105; BP diastolic 50–87
--- NOTE | 2018-07-28 01:00 | NUR ---
PATIENT REPOSITIONED, LOPEZ CARE PROVIDED, PARTIAL LINEN CHANGE, CONTINUE POC
--- NOTE | 2018-07-28 03:00 | NUR ---
RE-ASSESSMENT COMPLETE, PER NURSING FLOWSHEET, PATIENT REPOSITIONED, SNACK PROVIDED, WILL CONTINUE TO MONITOR
[2018-07-28 03:57] LABS: BASOPHILS 0.2 % (0-2); EOSINOPHILS 4.6 % (0-7); HEMATOCRIT 48.1 % (42.0-54.0); HEMOGLOBIN 16.2 g/dL (13.5-17.5); IMMATURE GRANULOCYTES 1.6 % (0-5); LYMPHOCYTES 8.2 % (15-50); MCH 32.4 pg (26.0-34.0); MCHC 33.7 g/dL (31.0-37.0); MCV 96.2 fL (80.0-100.0); MEAN PLATELET VOLUME 10.2 fL (7.4-10.4); MONOCYTES 6.1 % (2-11); NEUTROPHILS 79.3 % (40-80); PLATELET COUNT 368 10x3/uL (130-400); RDW 13.2 % (11.5-14.5); WBC 17.8 10x3/uL (4.8-10.8)
[2018-07-28 04:11] LABS: ALBUMIN 2.1 g/dL (3.4-5.0); BILIRUBIN - TOTAL 2.55 mg/dL (0.2-1.3); CALCIUM 8.1 mg/dL (8.5-10.1); CARBON DIOXIDE 37.9 mmol/L (21.0-32.0); CREATININE - SERUM 1.4 mg/dL (0.6-1.3); PROTEIN - SERUM 6.2 g/dL (6.4-8.2)
[2018-07-28 04:16] LABS: ANION GAP 10.3 mmol/L (8-16); POTASSIUM - SERUM 3.2 mmol/L (3.5-5.1)
--- NOTE | 2018-07-28 05:00 | NUR ---
PATIENT SLEEPING, IN NO APPARENT DISTRESS, C/L IN REACH, WILL CONTINUE TO MONITOR
--- NOTE | 2018-07-28 07:30 | NUR ---
REPORT RECEIVED FROM CREDIT RISK ANALYTICS MANAGER. CARE ASSUMED. PATIENT AWAKE AND ALERT. ASSESMENT COMPLETED. SEE VS SHEET. PATEITN DENIES ANY NEEDS OR PAIN. WILL CONTINUE TO MONITOR CLOSELY. SR UP X 2 . BED IN LOW POSITION AND CALL LIGHT IN REACH.
--- NOTE | 2018-07-28 09:31 | NUR ---
PATIENT SITTING UP IN BED VISITING WITH FAMILY. POTASSIUM 3.2 MEDICATED PER MAR WITH KDUR 40 MG PO. WILL RECHECK K LEVEL IN 4 HOURS. PATIENT DENIES ANY NEEDS OR PAIN. WILL CONTINUE TO MONITOR.
--- NOTE | 2018-07-28 11:00 | NUR ---
PATIENT UP TO BEDSIDE CHAIR. VS GOOD AND PATIENT TOLERATING WELL. CALL LIGHT IN REACH. WILL CONTINUE TO MONITOR CLOSELY.
--- NOTE | 2018-07-28 12:00 | NUR ---
PATIENT BACK TO BED. DYSPNEA WITH EXERTION. PATIENT REPOSITIONED FOR COMFORT. WILL CONTINUE TO MONITOR. SR UP BED IN LOW POSITION AND CALL LIGHT IN REACH.
--- NOTE | 2018-07-28 15:00 | NUR ---
REASSESMENT COMPLETED. PATIENT LAYING ON RT SIDE WITH EYES CLOSED AND BREATHING EVENLY. WILL CONTINUE TO MONITOR. SR UP X 2 BED IN LOW POSITION AND CALL LIGHT IN REACH.
--- NOTE | 2018-07-28 17:46 | NUR ---
PATIENT LAYING IN BED ON BACK. ENCOURAGED PATIENT TO EAT SUPPER BUT PATIENT STATES NOT HUNGRY AT ALL. PATIENT DID DRINK ONE BOOST AND ONE SPRITE. PATIENT DENIES ANY NEEDS OR PAIN. WILL CONTINUE TO MONITOR.
--- NOTE | 2018-07-28 19:30 | NUR ---
ASSESSMENT COMPLETE PER NURSING FLOWSHEET, PATIENT REPOSITIONED, NO OTHER NEEDS VOICED OR NOTED
--- NOTE | 2018-07-28 21:00 | NUR ---
PATIENT REPOSITIONED, WATCHING TV, C/L ABIDA SATYA
--- NOTE | 2018-07-28 23:00 | NUR ---
RE-ASSESSMENT COMPLETE PER NURSING FLOWSHEET, PATIENT REPOSITIONED, CONTINUE POC
[2018-07-29] VITALS (17 sets, daily range): BP systolic 82–112; BP diastolic 53–79
--- NOTE | 2018-07-29 01:00 | NUR ---
PATIENT REPOSITIONED, LOPEZ CARE PROVIDED, BACK TO SLEEP, PATIENT NPO AFTER MIDNIGHT, WILL CONTINUE TO MONITOR
--- NOTE | 2018-07-29 03:00 | NUR ---
RE-ASSESSMENT COMPLETE, PATIENT REPOSITIONED, CONTINUE POC
--- NOTE | 2018-07-29 05:00 | NUR ---
PATIENT REPOSITIONED, IMMEDIATELY FALLS BACK TO SLEEP, NO OTHER NEEDS VOICED OR NOTED
[2018-07-29 05:45] LABS: BASOPHILS 0.2 % (0-2); EOSINOPHILS 4.9 % (0-7); HEMATOCRIT 49.9 % (42.0-54.0); HEMOGLOBIN 16.7 g/dL (13.5-17.5); IMMATURE GRANULOCYTES 1.2 % (0-5); LYMPHOCYTES 7.9 % (15-50); MCH 32.6 pg (26.0-34.0); MCHC 33.5 g/dL (31.0-37.0); MCV 97.3 fL (80.0-100.0); MEAN PLATELET VOLUME 10.6 fL (7.4-10.4); MONOCYTES 6.5 % (2-11); NEUTROPHILS 79.3 % (40-80); PLATELET COUNT 388 10x3/uL (130-400); RBC 5.13 10x6/uL (4.20-6.10); RDW 13.1 % (11.5-14.5); WBC 16.6 10x3/uL (4.8-10.8)
[2018-07-29 06:00] LABS: ALBUMIN 2.1 g/dL (3.4-5.0); ANION GAP 7.6 mmol/L (8-16); BILIRUBIN - TOTAL 2.16 mg/dL (0.2-1.3); CALCIUM 8.1 mg/dL (8.5-10.1); CARBON DIOXIDE 37.5 mmol/L (21.0-32.0); CREATININE - SERUM 1.4 mg/dL (0.6-1.3); POTASSIUM - SERUM 3.1 mmol/L (3.5-5.1); PROTEIN - SERUM 6.1 g/dL (6.4-8.2)
--- NOTE | 2018-07-29 08:28 | NUR ---
ANGELLA GALLO CALLED GIVEN UDPATE REGAURDING TO TO METAL WIRE TECHNICIAN AT THIS TIME. STATED UNDERSTANDING. QUESTIONS ANSWERED. WILL CONTINUE TO MONITOR
--- NOTE | 2018-07-29 09:24 | NUR ---
[employer]IX ARCHITECT CALLED. GIVEN UPDATE. PT BACK TO ROOM 2312. T ORDERS RECEIVED.
--- NOTE | 2018-07-29 09:51 | NUR ---
NUTRITION F/U PT FOR TRANSFER TO [facility] ON REG DIET. WILL CONTINUE TO PROVIDE DIET, MONITOR PT PROGRESS. RD FOLLOWING
--- NOTE | 2018-07-29 10:02 | NUR ---
ANGELLA GALLO CALLED GIVEN UPDATE. VSS WILL CONTINUE TO MONITOR
--- NOTE | 2018-07-29 11:15 | NUR ---
PT SLEEPING COMFORTABLY. VSS. NO NEW CHANGES WILL CONTINUE TO MONITOR
--- NOTE | 2018-07-29 13:00 | NUR ---
PT RESTING AT THIS TIME, WILL CON'T TO MONITOR
--- NOTE | 2018-07-29 13:20 | NUR ---
DR HELTON AT BEDSIDE. GIVEN UPDATE NO NEW CHANGES.
--- NOTE | 2018-07-29 15:14 | MORECARE ---
CASE MANAGEMENT DISCHARGE SUMMARY PATIENT: CELINA EID UNIT: [id number] ADM DATE: 07/24/18 AGE: 83 : 36 SEX: M ROOM/BED: D.2312 AUTHOR: TESSIE,DOC PHYSICIAN: REFERRING PHYSICIAN: EDWIGE MERCADO MD DATE OF SERVICE: 07/29/18 Discharge Plan Patient Name: CELINA EID Facility: [facility]:[place] : 1935 Planned Disposition: Home Health Service Anticipated Discharge Date: Discharge Date: Expected LOS: Initial Reviewer: [email or web address] Initial Review Date: 07/25/2018 Generated: 07/29/18 4:14 pm Comments DCP- Discharge Planning Updated by [id number]: Mojgan Romero on 07/29/18 2:[address] CM contacted [facility] to find out about patients home health provider. CM was notified that patient has [facility] in [place]. CM called [facility] [phone] spoke Emelina at [facility] and she stated they planned on resuming care upon discharge. CM will continue to follow and assist as needed with discharge planning / needs. DCP- Discharge Planning Updated by [email or web address]: Mojgan Romero on 07/25/18 2:[address] Patient Name: CELINA EID Admission Status: ER Accout number: [id number] Admission Date: 07-24-2018 : 1935 Admission Diagnosis: Attending: EDWIGE MERCADO Current LOS: 1 Anticipated DC Date: Planned Disposition: Home Health Service Primary Insurance: MEDICARE A & B Discharge Planning Comments: CM met with patient at bedside. Patient states he lives alone and plans to return to his home upon discharge. Patient states he has been admitted in [place] within last 30days for shortness of breath and pneumonia. Patient states that he does have Home Health Services but is unsure of provider. He states they have seen him 3 times. He plans on them resuming care. CM will continue to follow and assist as needed with discharge planning / needs. Material Crew Supervisor: Mojgan Romero DCPIA - Discharge Planning Initial Assessment Updated by [id number]: Mojgan Romero on 07/25/18 3:43 pm * Is the patient Alert and Oriented? Yes * How many steps to enter\\exit or inside your home? * PCP can't remember his name. "He is in [place]" * Pharmacy [facility] * Preadmission Environment Home Alone * ADLs Independent * Other Equipment WALKER, CANE, CRUTCHES, * List name and contact numbers for known caregivers / representatives who currently or will assist patient after discharge: ANGELLA - DOESN'T REMEMBER NUMBER * Verbal permission to speak to the caregivers and representatives has been obtained from the patient. N/A * Community resources currently utilized Home Health * Please name any agencies selected above. HE STATES HE IS BEING SEEN BY HH BUT UNSURE OF PROVIDER. * Additional services required to return to the preadmission environment? No * Can the patient safely return to the preadmission environment? Yes * Has this patient been hospitalized within the prior 30 days at any hospital? Yes Last DP export: 07/25/18 2:56 p Patient Name: CELINA EID Page [id number] at 1514 All edits/amendments must be made on the electronic document DICTATION DATE: 07/29/181513 TERMINAL OPERATOR: DULCE MARIA 07/29/18 151 RPT#: [id number] DC DATE: STATUS: ADM IN [facility] [address] [place] [address] END OF REPORT
--- NOTE | 2018-07-29 18:27 | NUR ---
RECEIVED PT FROM ICU VIA WHEELCHAIR. PT IS AAO AND UP WITH ASSIST. RR EVEN AND UNLABORED ON 3L HIGH FLOW NC. NS INFUSING @KVO AND ADMIODORONE INFUSING @5/HR VIA R.FOR PIV. RIGHT FEM CATH SITE IS C/D/I. TELEMETRY PLACED ON PT. PT DENIES ANY NEEDS. WILL CTM.
--- NOTE | 2018-07-29 19:30 | NUR ---
RECEIVED REPORT, WILL ASSUME CARE OF PT, PT THINKS IT AM, EXPLAINED IT IS 1930, BED IS LOW, SRX2, CALL LIGHT IN REACH, WILL CONTINUE PLAN OF CARE
[2018-07-30] VITALS: BP 94/43
--- NOTE | 2018-07-30 03:20 | NUR ---
LYING IN BED, RESPIRATIONS EVEN AND UNLABORED. CALL LIGHT IN REACH, WILL CONTINUE WITH PLAN OF CARE.
[2018-07-30 04:00] VITALS: BP 96/65
[2018-07-30 06:43] LABS: BASOPHILS 0.2 % (0-2); EOSINOPHILS 5.2 % (0-7); HEMATOCRIT 45.1 % (42.0-54.0); IMMATURE GRANULOCYTES 0.8 % (0-5); LYMPHOCYTES 6.6 % (15-50); MCH 32.1 pg (26.0-34.0); MCHC 33.3 g/dL (31.0-37.0); MCV 96.6 fL (80.0-100.0); MEAN PLATELET VOLUME 10.8 fL (7.4-10.4); MONOCYTES 7.3 % (2-11); NEUTROPHILS 79.9 % (40-80); RBC 4.67 10x6/uL (4.20-6.10); RDW 13.1 % (11.5-14.5); WBC 15.7 10x3/uL (4.8-10.8)
[2018-07-30 07:08] LABS: PLATELET COUNT 310 10x3/uL (130-400)
[2018-07-30 07:35] LABS: ALBUMIN 2.1 g/dL (3.4-5.0); ANION GAP 10.4 mmol/L (8-16); BILIRUBIN - TOTAL 1.68 mg/dL (0.2-1.3); CALCIUM 8.6 mg/dL (8.5-10.1); CARBON DIOXIDE 33.1 mmol/L (21.0-32.0); CREATININE - SERUM 1.2 mg/dL (0.6-1.3); POTASSIUM - SERUM 3.5 mmol/L (3.5-5.1)
--- NOTE | 2018-07-30 07:45 | NUR ---
AM ROUNDS COMPLETED. INTRODUCED MYSELF TO PT PRIMARY RN FOR TODAYS SHIFT. SHIFT ASSESSMENT COMPLETED. PT IS A&O SITTING UP IN BED WAITING ON BREAKFAST. PULLED PT UP IN BED FOR COMFORT AND SO HE CAN EAT. PT VOICED THANKS AND DENIES ANY CURRENT NEEDS AT THIS TIME. CL IN REACH, BED IN LOWEST, SIDE RAILS X2. WILL CTM.
[2018-07-30 08:45] VITALS: BP 91/58
--- NOTE | 2018-07-30 10:08 | NUR ---
PTS R.FA PIV IS LEAKING AND HAS INFILTRATED. D/C WITH CATHETER TIP FULLY INTACT. NEW 22 GUAGE INSERTED TO L.FA X3 STICKS. AMIODARONE DRIP BACK IN PLACE ORDERED. PT WOULD LIKE TO REST DENIES ANY CURRENT PAIN OR NEEDS. CL IN REACH, BED IN LOWEST, SIDE RAILS X2. WILL CTM.
[2018-07-30 12:13] VITALS: BP 97/57
--- NOTE | 2018-07-30 15:01 | OP ---
PATIENT NAME: CELINA EID MEDICAL RECORD: [id number] :37 LOCATION:D.M2 D.0 ADMISSION DATE:07/24/18 SURGEON: MINERVA VARNER MD DATE OF OPERATION: 07/29/2018 PROCEDURE: Left heart catheterization, selective coronary angiography, right femoral artery approach. CATHETERS: A 5-Frisian sheath, 5/4 left and right Racheal, 5/4 pig. The procedure was well tolerated. The patient returned to abdul, sheath removed. ExoSeal device placed. FINDINGS: Left ventriculography not performed to save contrast load. CORONARY ANATOMY: LEFT MAIN: Left main is free of disease. LAD: Free of disease in the diagonal system. CIRCUMFLEX: Free of disease in the marginal system. RIGHT CORONARY ARTERY: Dominant artery, gives rise to PDA, free of disease. IMPRESSION: Normal coronary anatomy. Mild decreased LV function via previous echocardiographic study, this may be related to atrial fibrillation. We will restart amiodarone, anticoagulation. TRANSINT:[id number] Voice Confirmation ID: [id number] DOCUMENT ID: [id number] MINERVA VARNER MD at 1501 CC: [id number] DICTATION DATE: 07/29/18 0915 WORKFORCE MANAGEMENT MANAGER: 07/29/18 1334 ADM IN [facility] [address] [place] [address]
--- NOTE | 2018-07-30 15:01 | EC ---
PATIENT:CELINA EID DATE OF SERVICE: 07/24/18 SEX: M MEDICAL RECORD: [id number] DATE OF : [birth year] LOCATION:D.M2 D.211 AGE OF PATIENT: 83 ADMISSION DATE: 07/24/18 REFERRING PHYSICIAN: INTERPRETING PHYSICIAN: MINERVA VARNER MD ECHOCARDIOGRAM REPORT ECHO CHARGES 5 ECHO LIMITED Date: 07/25/18 CLINICAL DIAGNOSIS: PNEUMONIA,ELEVATED TROPONIN, HX OF LEAKY VALVES ECHOCARDIOGRAPHIC MEASUREMENTS (adult normal given) AC root (d.<3.7cm) cm LV Septum d (<1.2 cm> cm Valve Excursion cm LV Septum (systole) cm Left Atria (s.<4.0cm> 4.6 cm LVPW d(<1.2cm) cm RV (d.<2.3cm) 4.6 cm LVPW (sytole) cm LV diastole(<5.6CM) 5.2 cm MV E-F(>70mm/sec) cm LV systole 4.4 cm LVOT Diameter 1.5 cm MV exc.(>10mm) cm Est.ejection fraction (50-75%) % DOPPLER: LVIT cm/sec A 135 cm/sec E cm/sec LA cm/sec RVSP 55 mmHg LVOT 97 cm/sec AOP1/2T m/s Asc. Ao 153 cm/sec RVOT cm/sec RA cm/sec PA cm/sec AV Gradient Peak 9.31 mmHg AV Mean 5.03 mmHg AV Area 1.4 cm MV Gradient Peak 10.10mmHg MV Mean 3.31 mmHg MV Area cm COMMENTS: Fire Truck Driver: Director Life Sciences: Nydia Fairbanks TAPE# 3 PACS Pericardial Effusion N DATE OF SERVICE: 07/25/2018 Adequate 2-D, color flow and spectral Doppler, and M-mode Borderline LVH. LV internal dimension are normal. There is mild hypokinesis from the mid anterior wall down to the anterior apex. Overall, function appears to be mildly reduced, lower limits of normal to 45-50%. Aortic valve sclerosis without stenosis by Doppler interrogation. Left atrium is dilated at 4.6 cm. Mitral valve shows no prolapse. Mild MR. Right-sided chamber are grossly normal. Mild TR. ECHOCARDIOGRAM REPORT [id number] CELINA EID TRANSINT:[id number] Voice Confirmation ID: [id number] DOCUMENT ID: [id number] MINERVA VARNER MD at 1501 CC: [id number] DICTATION DATE: 07/25/18 1313 BANQUET SERVER ON CALL: 07/25/18 1419 ADM IN [place] [id number] [place] [id number]
[2018-07-30 16:12] VITALS: BP 94/59
--- NOTE | 2018-07-30 17:30 | NUR ---
PTS HEART RATE IS STILL ATRIAL FIB, CURRENTLY RUNNING UNCONTROLLED A.FIB 118. CARDIOLOGY ORDERED NEW MEDICATIONS, PUSHING DIGOXIN OVER 5 MINS AT THIS TIME THEN WILL F/U WITH THE AMIODARONE BOLUS ORDERED. PT VERBALIZED UNDERSTANDING AND IS RESTING IN BED. CL IN REACH. WILL CTM.
--- NOTE | 2018-07-30 18:19 | NUR ---
INITIATED AMIODARONE BOLUS LOADING DOSE. PT RESTING IN BED DENIES ANY CURRENT NEEDS. NOTIFIED TELEMETRY MONITER TECH AND WILL CTM.
--- NOTE | 2018-07-30 18:29 | NUR ---
TWISTING OPERATOR COMPLETE. PT LYING IN BED. DENIES NEEDS. NO SIGNS OF DISTRESS.
[2018-07-30 20:00] VITALS: BP 110/57
[2018-07-31] VITALS: BP 112/62
[2018-07-31 04:00] VITALS: BP 100/60
[2018-07-31 05:42] LABS: BASOPHILS 0.3 % (0-2); EOSINOPHILS 3.9 % (0-7); HEMATOCRIT 38.9 % (42.0-54.0); HEMOGLOBIN 12.9 g/dL (13.5-17.5); IMMATURE GRANULOCYTES 0.9 % (0-5); LYMPHOCYTES 6.5 % (15-50); MCH 31.8 pg (26.0-34.0); MCHC 33.2 g/dL (31.0-37.0); MCV 95.8 fL (80.0-100.0); MEAN PLATELET VOLUME 10.6 fL (7.4-10.4); MONOCYTES 6.3 % (2-11); NEUTROPHILS 82.1 % (40-80); RBC 4.06 10x6/uL (4.20-6.10); RDW 12.9 % (11.5-14.5); WBC 14.9 10x3/uL (4.8-10.8)
[2018-07-31 05:53] LABS: PLATELET COUNT 246 10x3/uL (130-400)
[2018-07-31 06:11] LABS: ANION GAP 7.7 mmol/L (8-16); CALCIUM 7.9 mg/dL (8.5-10.1); CARBON DIOXIDE 32.2 mmol/L (21.0-32.0); CREATININE - SERUM 1.2 mg/dL (0.6-1.3); PHOSPHOROUS 2.4 mg/dL (2.5-4.9); POTASSIUM - SERUM 3.9 mmol/L (3.5-5.1)
--- NOTE | 2018-07-31 07:25 | NUR ---
AM ROUNDS COMPLETED. INTRODUCED MYSELF TO PT PRIMARY RN FOR TODAYS SHIFT. PT IS A&O RESTING QUIETLY IN BED AT THIS TIME. SHIFT ASSESSMENT COMPLETED. WILL REVIEW CHART AND PULL MORNING MEDICATIONS AND CPOC. NO CURRENT NEEDS. CL IN REACH.
[2018-07-31 08:15] VITALS: BP 94/68
--- NOTE | 2018-07-31 09:18 | NUR ---
PT WORKING WITH THERAPY AMBULATING AND STATES HE IS DOING WELL JUST FEELING WEAK OVERALL. NO CURRENT NEEDS. WILL CTM.
[2018-07-31 11:14] VITALS: BP 90/61
--- NOTE | 2018-07-31 12:03 | NUR ---
D/C PTS LOPEZ CATHETER PER NURSE DRIVEN PROTOCOL. CATHETER TIP FULLY INTACT, WILL MONITER FOR ANY S/S OF RETENTION.
--- NOTE | 2018-07-31 13:58 | NUR ---
PT CALLED NEEDING TO USE BEDPAN. EXPLAINED TO PT HE REALLY NEEDS TO TRY TO GET OOB AND BE MORE ACTIVE. PT AMBULATED WITH THERAPY AND THERAPY STATES OKAY TO GET UP WITH NURSES OR WITH ASSISTANCE. ASSISTED PT INTO BR AND HE HAD LARGE FORMED BOWEL MOVEMENT PT STATES HE IS FEELING MUCH BETTER BECAUSE HE HAS FELT CONSTIPATED FOR DAYS. ASSISTED PT BACK IN BED AND HE IS SITTING UP IN BED RESTING QUIETLY DENIES ANY FURTHER NEEDS AT THIS TIME. CL IN REACH, BED IN LOWEST, SIDE RAILS X2. WILL CTM.
[2018-07-31 15:09] VITALS: BP 84/60
--- NOTE | 2018-07-31 15:48 | NUR ---
DISCUSSED WITH CARDIOLOGY AND PT WILL HAVE AMIODARONE DRIP D/C AND START ORAL MEDICATION. WILL D/C DRIP 2HRS POST ORAL ADMINISTRATION. PT VERBALIZED UNDERSTANDING AND DENIES ANY QUESTIONS OR CONCERNS WILL PASS ON IN SHIFT REPORT.
--- NOTE | 2018-07-31 16:42 | CN ---
PATIENT NAME:CELINA GARCIA MEDICAL RECORD: [id number] : 37 LOCATION:D. D.2110 ADMIT DATE: 07/24/18 ACCOUNT: [id number] CONSULTING PHYSICIAN: CLEVELAND BARNARD MD REFERRING PHYSICIAN: EDWIGE MERCADO MD DATE OF CONSULTATION: 07/25/2018 CONSULT REQUESTING PHYSICIAN: Melissa Eli MD REASON FOR CONSULTATION: Pneumonia, acute hypoxic respiratory failure. HISTORY OF PRESENT ILLNESS: Mr. Garcia is an 83-year-old gentleman who was initially admitted to [facility] with shortness of breath. For the last few days, he was coughing, productive with white yellow color sputum production. He is also having orthopnea. Workup showed he has elevated cardiac enzymes and the patient was transferred over here for advanced care. He was also having significant leukocytosis. A chest x-ray showed bilateral infiltrate. He was also having elevated troponin. REVIEW OF SYSTEMS: As in history of present illness. PAST MEDICAL HISTORY: 1. Hypertension. 2. Valvular heart disease. 3. Gastroesophageal reflux disease. 4. History of prostate cancer. 5. Hypertension. 6. Glaucoma. ALLERGIES: There are no known drug allergies. MEDICATIONS: [employer] is reviewed. PERSONAL AND SOCIAL HISTORY: The patient has remote history of smoking at a young age. He is a nondrinker. FAMILY HISTORY: Noncontributory. PHYSICAL EXAMINATION: GENERAL: Now, the patient is lying comfortable. He is not in acute distress. VITAL SIGNS: The blood pressure is 97/70, pulse is 109, respiration 20, temperature 98.8, SpO2 is 99% on 6 liters oxymizer. HEENT: Conjunctivae are pink. Sclerae are not icteric. NECK: Supple, no JVD. CHEST: There are bilateral crackles. No wheeze. HEART: Rate and rhythm regular with a grade II/ systolic murmur. ABDOMEN: Soft, bowel sounds present. No hepatosplenomegaly. RECTAL: Deferred. EXTREMITIES: No cyanosis, no clubbing, no pedal edema. CENTRAL NERVOUS SYSTEM: The patient is awake and alert. There are no obvious cranial nerve abnormality. The gait was not tested. LABORATORY DATA: CBC: WBC is 19.4, hemoglobin 12.9, hematocrit 38.3, the platelet count is 355. Chemistry: Sodium 144, potassium 3.8, BUN is 32, creatinine 1.3. The liver enzymes are within normal range. The troponin is CONSULT REPORT [id number] CELINA GARCIA 0.126. LABORATORY DATA: ABG: The pH was 7.42, pCO2 of 40, pO2 was 68, bicarbonate was 27.2 and this was done on 50% oxygen. IMPRESSION: 1. Acute hypoxic respiratory failure. 2. Bilateral pneumonia, most likely community-acquired pneumonia. 3. Pulmonary edema. 4. Congestive heart failure, possible systolic dysfunction. 5. Valvular heart disease. 6. Elevated cardiac enzymes. RECOMMENDATION: 1. Continue supplemental oxygen. 2. Diuresis. 3. Continue empiric antibiotic. 4. Cardiology consulted. 5. Follow up labs and chest radiograph. 6. Deep vein thrombosis prophylaxis. Dr. Eli, thank you for involving me in the care of Mr. Garcia. TRANSINT:[id number] Voice Confirmation ID: [id number] DOCUMENT ID: [id number] CLEVELAND BARNARD MD at 1642 CC: [id number] DICTATION DATE: 07/25/18 1534 POLICE CADET: 07/25/18 1811 ADM IN [facility] [address] [place] [address]
[2018-07-31 20:00] VITALS: BP 98/68
--- NOTE | 2018-07-31 21:52 | NUR ---
PT LAYING IN BED HAVING PROBLEMS GETTING COMFORTABLE. PT APPERS RESTLESS AND ANXIOUS. PT STATES HE FEELS LIKE HE CAN'T BREATH. RESP-20 O2-95% PT BED LOW CALL LIGHT WITHIN REACH. URINAL AT BEDSIDE. WILL CONTINUE TO MONITOR.
--- NOTE | 2018-07-31 22:52 | NUR ---
PT AMIODARONE JOANNA DC'D. ORAL FORM GIVEN AT 2230. PT SALINA Escalera CONTROLLED A-FIBB ON TELEMETRY. BED LOW CALL LIGHT WITHIN REACH. WILL CONTINUE TO MONITOR.
--- NOTE | 2018-07-31 23:36 | NUR ---
LYING IN BED WITH CALL LIGHT IN REACH. WILL CONTINUE TO MONITOR.
[2018-08-01 00:14] VITALS: BP 115/46
--- NOTE | 2018-08-01 01:30 | NUR ---
PT IV INFILTRATED. DC'D 22G FROM LEFT FOREARM CATHETER TIP IN PLACE. NO SWELLING NOTED. VANCOMYSIN STOPPED. PT RESTLESS AND HAVING DIFFICULT TIME USING URINAL. PT URINATING 75 CC'S EVERY HOUR. PT UNCOMFORTABLE AFTER POSITION CHANGES AND STATES THAT HE WANTED HIS LOPEZ BACK IN.BED LOW CALL LIGHT WITHIN REACH. WILL CONTINUE TO MONITOR.
[2018-08-01 04:00] VITALS: BP 92/62
--- NOTE | 2018-08-01 04:11 | NUR ---
PT IN HAVING LABORED BREATHING AND USING ACESSORY MUSCLES TO BREATH. PT ON HIGH FLOW O2 AT 7. SAT 88%. CALLED RESPRATORY ABG'S BEING DRAWN . O2 BUMPED UP TO 9 O2-92% BED LOW CALL LIGHT WITHIN REACH. WILL CONTINUE TO MONITOR.
[2018-08-01 06:15] LABS: BASOPHILS 0.2 % (0-2); EOSINOPHILS 3.7 % (0-7); HEMATOCRIT 40.2 % (42.0-54.0); HEMOGLOBIN 13.4 g/dL (13.5-17.5); IMMATURE GRANULOCYTES 0.8 % (0-5); LYMPHOCYTES 3.7 % (15-50); MCH 31.8 pg (26.0-34.0); MCHC 33.3 g/dL (31.0-37.0); MCV 95.5 fL (80.0-100.0); MEAN PLATELET VOLUME 10.7 fL (7.4-10.4); MONOCYTES 5.1 % (2-11); NEUTROPHILS 86.5 % (40-80); PLATELET COUNT 255 10x3/uL (130-400); RBC 4.21 10x6/uL (4.20-6.10); WBC 18.5 10x3/uL (4.8-10.8)
[2018-08-01 06:31] LABS: CALC OSMOLALITY 275 mosm/kg (275-300); CALCIUM 7.9 mg/dL (8.5-10.1); CARBON DIOXIDE 29.9 mmol/L (21.0-32.0); CHLORIDE - SERUM 101 mmol/L (98-107); GLUCOSE 105 mg/dL (74-106); POTASSIUM - SERUM 4.4 mmol/L (3.5-5.1); SODIUM 136 mmol/L (136-145); UREA NITROGEN 24 mg/dL (7-18); eGFR NON AFRICAN AMERICAN 76 mL/min (90-120)
[2018-08-01 08:03] VITALS: BP 98/72
--- NOTE | 2018-08-01 08:29 | MORECARE ---
CASE MANAGEMENT DISCHARGE SUMMARY PATIENT: CELINA EID UNIT: [id number] ADM DATE: 07/24/18 AGE: 83 : 36 SEX: M ROOM/BED: D.2110 AUTHOR: TESSIE,DOC PHYSICIAN: REFERRING PHYSICIAN: EDWIGE MERCADO MD DATE OF SERVICE: 08/01/18 Discharge Plan Patient Name: CELINA EID Facility: [facility]:[place] : 1935 Planned Disposition: Home Health Service Anticipated Discharge Date: Discharge Date: Expected LOS: Initial Reviewer: [email or web address] Initial Review Date: 07/25/2018 Generated: 08/01/18 9:29 am DCP- Discharge Planning Updated by [email or web address]: Mojgan Romero on 07/29/18 2:[address] CM contacted [facility] to find out about patients home health provider. CM was notified that patient has [facility] in [place]. CM called [employer] [phone] spoke Emelina at [facility] and she stated they planned on resuming care upon discharge. CM will continue to follow and assist as needed with discharge planning / needs. DCP- Discharge Planning Updated by [email or web address]: Mojgan Romero on 07/25/18 2:[address] Patient Name: CELINA EID Admission Status: ER Accout number: [id number] Admission Date: 07-24-2018 : 1935 Admission Diagnosis: Attending: EDWIGE MERCADO Current LOS: 1 Anticipated DC Date: Planned Disposition: Home Health Service Primary Insurance: MEDICARE A & B Discharge Planning Comments: CM met with patient at bedside. Patient states he lives alone and plans to return to his home upon discharge. Patient states he has been admitted in [place] within last 30days for shortness of breath and pneumonia. Patient states that he does have Home Health Services but is unsure of provider. He states they have seen him 3 times. He plans on them resuming care. CM will continue to follow and assist as needed with discharge planning / needs. Aesthetics Instructor: Mojgan Romero DCPIA - Discharge Planning Initial Assessment Updated by [email or web address]: Mojgan Romero on 07/25/18 3:43 pm * Is the patient Alert and Oriented? Yes * How many steps to enter\\exit or inside your home? * PCP can't remember his name. "He is in [place]" * Pharmacy [facility] * Preadmission Environment Home Alone * ADLs Independent * Other Equipment WALKER, CANE, CRUTCHES, * List name and contact numbers for known caregivers / representatives who currently or will assist patient after discharge: ANGELLA - DOESN'T REMEMBER NUMBER * Verbal permission to speak to the caregivers and representatives has been obtained from the patient. N/A * Community resources currently utilized Home Health * Please name any agencies selected above. HE STATES HE IS BEING SEEN BY HH BUT UNSURE OF PROVIDER. * Additional services required to return to the preadmission environment? No * Can the patient safely return to the preadmission environment? Yes * Has this patient been hospitalized within the prior 30 days at any hospital? Yes Last DP export: 07/29/18 2:14 p Patient Name: CELINA EID Page [id number] at 0829 All edits/amendments must be made on the electronic document DICTATION DATE: 08/01/18828 MODEL MAKER FIBERGLASS: DULCE MARIA 08/01/18828 RPT#: [id number] DC DATE: STATUS: ADM IN [facility] [address] [place] [address] END OF REPORT
--- NOTE | 2018-08-01 08:56 | NUR ---
PT C/O BEING VERY ANXIOUS AND STATES EVERY LITTLE NOISE AND THING IS MAKING HIM UPSET AND HE FEELS LIKE HE CANT BREATHE AND FEELS LIKE HE IS HAVING PANIC ATTACKS. PAGED PRIMARY AND THEY STATE TO CALL [facility] AND SEE IF OKAY FOR ANXIETY MEDICATIONS.
--- NOTE | 2018-08-01 09:58 | NUR ---
NEW ORDERS OBTAINED FROM . NEW MEDICATION PROVIDED FOR ANXIETY AND TEACHING PROVIDED. PT VERBALIZED UNDERSTANDING AND DENIES ANY FURTHER NEEDS AT THIS TIME. CL IN REACH, BED IN LOWEST, SIDE RAILS X2. WILL CTM.
--- NOTE | 2018-08-01 11:21 | NUR ---
PT FEELING SLIGHT RELIEF FROM THE PRN ANXIETY MEDICATION. PT SITTING UP IN BED RESTING QUIETLY. DISCUSSED WITH PTS DAUGHTER AND WENT OVER DISCHARGE PLANNING. DAUGHTER CONCERNED AND STATES HE LIVES ALONE AND HAS HOME HEALTH BUT WILL NEED MORE ASSISTANCE WITH MEALS AND MEDICATIONS AND THERAPY. WILL PASS ON TO CASE MANAGEMENT AND SEE ABOUT FURTHER NEEDS. CL IN REACH, BED IN LOWEST, SIDE RAILS X2. WILL CTM.
[2018-08-01 11:30] VITALS: BP 89/57
[2018-08-01 15:29] VITALS: BP 92/53
--- NOTE | 2018-08-01 17:07 | NUR ---
PT HAS BEEN INCONTINENT AND UNABLE TO ACCURATELY COUNT OUTPUT BUT ALSO WHEN HE VOIDS ITS VERY SMALL AMOUNTS LIKE 100CC AND CONCENTRATED. WAS GOING TO BLADDER SCAN WHEN I NOTICED PTS BLADDER WAS DISTENDED. PT STATES HE HAS HAD PROBLEMS BEFORE AND SEEN A UROLOGIST. PT IS RETAINING AND ORDERED A LOPEZ CATHETER. 16FR PLACED R/T RETENTION. SLIGHT RESISTANCE MET WHEN INSERTING BUT IS INDWELLING WITH IMMEDIATE URINE RETURN. CONCENTRATED 500CC CAME OUT AND STAT LOCK IS SECURED TO L.INNER THIGH, COLLECTION BAG DRAINING TO GRAVITY. PT VOICED THANKS AND STATES HE IS ALREADY BREATHING EASIER AND STATES HIS FAN IS A "LIFE SAVER" PT SITTING UP IN BED RESTING QUIETLY DENIES ANY CURRENT PAIN OR NEEDS AT THIS TIME. CL IN REACH, BED IN LOWEST, SIDE RAILS X2. WILL CTM.
--- NOTE | 2018-08-01 19:45 | NUR ---
RESUMING CARE, PT LAYING IN BED WITH EYES CLOSED, O2 @ 12L IV IN RT FA NS @15 A&0 NO C/O PAIN OR DISDTRESS AT THIS TIME CALL LIGHT IN REACH WILL CON TO MONITOR
[2018-08-01 20:00] VITALS: BP 87/54
[2018-08-02] VITALS (13 sets, daily range): BP systolic 81–96; BP diastolic 48–78
--- NOTE | 2018-08-02 04:21 | NUR ---
CHAMBER OF COMMERCE DIVISION MANAGER AT BEDSIDE TO OBTAIN VITALS, CALL LIGHT IN REACH. WILL CONTINUE WITH PLAN OF CARE.
[2018-08-02 06:33] LABS: ANION GAP 12.7 mmol/L (8-16); CALCIUM 8.4 mg/dL (8.5-10.1); CREATININE - SERUM 1.3 mg/dL (0.6-1.3); POTASSIUM - SERUM 4.7 mmol/L (3.5-5.1)
[2018-08-02 06:37] LABS: HEMATOCRIT 40.9 % (42.0-54.0); HEMOGLOBIN 13.7 g/dL (13.5-17.5); MCH 32.2 pg (26.0-34.0); MCHC 33.5 g/dL (31.0-37.0); MCV 96.2 fL (80.0-100.0); MEAN PLATELET VOLUME 11.1 fL (7.4-10.4); PLATELET COUNT 239 10x3/uL (130-400); RBC 4.25 10x6/uL (4.20-6.10); RDW 13.1 % (11.5-14.5); WBC 20.8 10x3/uL (4.8-10.8)
[2018-08-02 08:35] LABS: ANISOCYTOSIS OCC; LYMPHOCYTES 2 % (15-50); MONOCYTES 2 % (2-11); NEUTROPHILS 94 % (40-80); PLATELET ESTIMATE NORMAL
--- NOTE | 2018-08-02 09:30 | NUR ---
MORNING MEDICATIONS GIVEN. PT SITTING UP IN BED STATES HE FEELS HIS BEST TODAY. HE WAS FINALLY ABLE TO SLEEP REALLY GOOD AND HAD A GREAT BED BATH. PTS CHEST APPEARS BIGGER OR LIKE BARREL CHEST IN MY OPINION AND LUNGS HAVE WHEEZING WITH FINE CRACKLES IN UPPER LOBES. LOWER LOBES ARE SLIGHTLY DIMINISHED BUT CAN HEAR AIR FLOW IN/OUT. PT IS CURRENTLY ON 12L HI FLOW NC WITH PULSE OX 95% WILL WEAN DOWN WHEN ABLE BUT NOT LIKELY LATELY BUT WILL KEEP IN COMMUNICATION WITH RT ABOUT IT. PTS LOPEZ IN PLACE DRAINING TO GRAVITY WITHOUT ANY ISSUES NOTED. PT DENIES ANY CURRENT PAIN OR NEEDS AT THIS TIME. CL IN REACH, BED IN LOWEST, SIDE RAILS X2 AND ДМИТРИЙ PAD IN PLACE. WILL CPOC.
--- NOTE | 2018-08-02 10:55 | NUR ---
REC'D TO ROOM 2305. TRANSFERRED TO ICU BED BY TOTAL LIFT. CONNECTED TO MONITOR AND VS OBTAINED. SEE FLOWSHEET FOR ASSESSMENT.
--- NOTE | 2018-08-02 12:00 | NUR ---
PT REFUSING THERAPY STATING "IM GETTING UP TO THE BR JUST FINE AND IM GOING TO HAVE PLENTY OF HELP AT HOME" PT HONESTLY THINKS HE IS GOING HOME TOMORROW AND THAT HE WILL JUST BE ABLE TO DO EVERYTHING WITH HOME HEALTH. PT IS JUST NOT UNDERSTANDING HOW SICK HE IS AND THAT HIS BREATHING IS WORSE EVERY DAY. DISCUSSED WITH HIS DAUGHTER AND SHE STATES HE IS JUST STUBBORN AND MISSING HIS DOGS AT HOME. NEW ORDERS CAME THROUGH TO TRANSFER PT TO ICU R/T RESPIRATORY FAILURE. I PAGED FOR A BED AND IM WAITING. RESPIRATORY AT BEDSIDE AND STARTED VAPOTHERM ORDERED. PT IMMEDIATELY NOT TOLERATING WELL AND WANTS IT OFF BUT AGREED TO WEAR IT FOR NOW. HE IS WANTING SOMETHING FOR ANXIETY HOWEVER ITS TOO EARLY. WILL CTM.
--- NOTE | 2018-08-02 12:10 | MORECARE ---
CASE MANAGEMENT DISCHARGE SUMMARY PATIENT: CELINA EID UNIT: [id number] ADM DATE: 07/24/18 AGE: 83 : 36 SEX: M ROOM/BED: D.2110 AUTHOR: TESSIE,DOC PHYSICIAN: REFERRING PHYSICIAN: EDWIGE MERCADO MD DATE OF SERVICE: 08/02/18 Discharge Plan Patient Name: CELINA EID Facility: [facility]:[place] : 1935 Planned Disposition: Home Health Service Anticipated Discharge Date: Discharge Date: Expected LOS: Initial Reviewer: [id number] Initial Review Date: 07/25/2018 Generated: 08/02/18 1:10 pm DCP- Discharge Planning Updated by [email or web address]: Mojgan Romero on 07/29/18 2:[address] CM contacted [facility] to find out about patients home health provider. CM was notified that patient has [facility] in [place]. CM called [facility] [phone] spoke Emelina at [facility] and she stated they planned on resuming care upon discharge. CM will continue to follow and assist as needed with discharge planning / needs. DCP- Discharge Planning Updated by [email or web address]: Mojgan Romero on 07/25/18 2:[address] Patient Name: CELINA EID Admission Status: ER Accout number: [id number] Admission Date: 07-24-2018 : 1935 Admission Diagnosis: Attending: EDWIGE MERCADO Current LOS: 1 Anticipated DC Date: Planned Disposition: Home Health Service Primary Insurance: MEDICARE A & B Discharge Planning Comments: CM met with patient at bedside. Patient states he lives alone and plans to return to his home upon discharge. Patient states he has been admitted in [place] within last 30days for shortness of breath and pneumonia. Patient states that he does have Home Health Services but is unsure of provider. He states they have seen him 3 times. He plans on them resuming care. CM will continue to follow and assist as needed with discharge planning / needs. Manager Of Distribution: Mojgan Romero DCPIA - Discharge Planning Initial Assessment Updated by [email or web address]: Mojgan Romero on 07/25/18 3:43 pm * Is the patient Alert and Oriented? Yes * How many steps to enter\\exit or inside your home? * PCP can't remember his name. "He is in [place]" * Pharmacy [facility] * Preadmission Environment Home Alone * ADLs Independent * Other Equipment WALKER, CANE, CRUTCHES, * List name and contact numbers for known caregivers / representatives who currently or will assist patient after discharge: ANGELLA - DOESN'T REMEMBER NUMBER * Verbal permission to speak to the caregivers and representatives has been obtained from the patient. N/A * Community resources currently utilized Home Health * Please name any agencies selected above. HE STATES HE IS BEING SEEN BY HH BUT UNSURE OF PROVIDER. * Additional services required to return to the preadmission environment? No * Can the patient safely return to the preadmission environment? Yes * Has this patient been hospitalized within the prior 30 days at any hospital? Yes Coverage Notice Reviewer: [id number] Apolonia Eli Notice Issued Date-Time: 08/02/2018 9:40 Notice Type: IM Discharge Notice Notice Delivered To: Patient Relationship to Patient: Lathe Sander Name: Delivery Method: HAND - Hand Delivered Vika Days: Prior Verbal Notification: Recipient Understood Notice: Yes Recipient Signature: Yes Med Rec Note Co-signed by Attending: Coverage Notice Comment: Reviewer: [email or web address] Eli Notice Issued Date-Time: 08/02/2018 9:40 Notice Type: Patient Choice Letter Notice Delivered To: Patient Relationship to Patient: Lathe Sander Name: Delivery Method: HAND - Hand Delivered Vika Days: Prior Verbal Notification: Recipient Understood Notice: Yes Recipient Signature: Yes Med Rec Note Co-signed by Attending: Coverage Notice Comment: [facility] Last DP export: 08/01/18 7:29 a Patient Name: CELINA EID Page [id number] at 1210 All edits/amendments must be made on the electronic document DICTATION DATE: 08/02/181208 PSYCH TECH: DULCE MARIA 08/02/181208 RPT#: [id number] DC DATE: STATUS: ADM IN [facility] [address] [place] [address] END OF REPORT
--- NOTE | 2018-08-02 12:34 | MORECARE ---
CASE MANAGEMENT DISCHARGE SUMMARY PATIENT: CELINA EID UNIT: [id number] ADM DATE: 07/24/18 AGE: 83 : 36 SEX: M ROOM/BED: D.2110 AUTHOR: TESSIE,DOC PHYSICIAN: REFERRING PHYSICIAN: EDWIGE MERCADO MD DATE OF SERVICE: 08/02/18 Discharge Plan Patient Name: CELINA EID Facility: [facility]:[place] : 1935 Planned Disposition: Home Health Service Anticipated Discharge Date: Discharge Date: Expected LOS: Initial Reviewer: [email or web address] Initial Review Date: 07/25/2018 Generated: 08/02/18 1:34 pm Comments DCP- Discharge Planning Updated by [email or web address]: Sebastian Eli on 08/02/18 11:[address] Patient Name: CELINA EID Encounter No: [id number] : 1935 Primary Insurance: MEDICARE A & B Anticipated DC Date: Planned Disposition: Home Health Service External Planned Provider: [facility], [place] DC follow-up note: CM RECEIVED PHONE MESSAGE FROM ANGELLA, PT'S DAUGHTER, WHO WANTED TO ENSURE PT HAS HOME HEALTH AND IF POSSIBLE, WANTS INFORMATION ON HOME ASSSITANCE AVAILABLE IN [place]. CM SPOKE TO PT IN ROOM WHO REPORTS ANGELLA IS HIS DAUGHTER AND HAS POWER OF CENTER DIRECTOR LEAD TEACHER IF NEEDED; PT REPORTS CM CAN DISCUSS CARE, TREATMENT AND DISCHARGE PLANNING WITH ANGELLA WHO WILL BE PICKING PT UP FOR DISCHARGE HOME. PT HAS HOME HEALTH WITH [facility] OR [facility]READ[facility], CHOICE LETTER SIGNED BY PT. PT WILL NOT CONSIDER REHAB PLACEMENT INPATIENT OR [facility]DC STATING HE IS GOING HOME AT DISCHARGE. IMPORTANT MESSAGE FROM MEDICARE PROVIDED AND EXPLAINED. CM CALLED [facility] IN [place], , SPOKE TO CHECO WHO ADVISED PT IS ACTIVE AND ON HOSPITAL HOLD. THEY DO HAVE SEWER PIPE CLEANER THAT CAN ASSESS AT HOME FOR ADDITIONAL HOME NEEDS. CM SPOKE TO SANDRA AT [facility] WHO WILL FAX CM A ELDERLY CAREGIVER LIST TO PROVIDE TO PT AND FAMILY IN ROOM. CM FAXED HOSPITAL UPDATE TO [facility] AT [phone]. CM CALLED ANGELLA NAQVI, DAUGHTER, , DISCUSSED HOME HEALTH WITH [facility] AND REFERRAL TO A PLACE FOR MOM. FAMILY IS WANTING TO LOOK INTO PRIVATE DUTY CARE FOR ABOUT ONE WEEK OR SO TO ENSURE PT WILL BE OK AT HOME. CM CALLED A PLACE FOR MOM REFERRAL SERVICE, , PROVIDED DAUGHTERS INFORMATION TO LOCAL ADVISOR, VASYL, WHO WILL SPEAK TO PT'S DAUGHTER FOR POSSIBLE REFERRALS FOR HOME CARE SERVICES. FOR DISCHARGE AND RESUMPTION OF [facility] IN [place], NOTIFY [facility] OF DISCHARGE AT [phone], FAX DISCHARGE INFORMATION TO [facility] AT [phone]. Sebastian Eli, CASE MANGEMENT DCP- Discharge Planning Updated by [email or web address]: Mojgan Romero on 07/29/18 2:[address] CM contacted [facility] to find out about patients home health provider. CM was notified that patient has [facility] in [place]. CM called [facility] [phone] spoke Emelina at [facility] and she stated they planned on resuming care upon discharge. CM will continue to follow and assist as needed with discharge planning / needs. DCP- Discharge Planning Updated by [email or web address]: Mojgan Romero on 07/25/18 2:[address] Patient Name: CELINA EID Admission Status: ER Accout number: [id number] Admission Date: 07-24-2018 : 1935 Admission Diagnosis: Attending: EDWIGE MERCADO Current LOS: 1 Anticipated DC Date: Planned Disposition: Home Health Service Primary Insurance: MEDICARE A & B Discharge Planning Comments: CM met with patient at bedside. Patient states he lives alone and plans to return to his home upon discharge. Patient states he has been admitted in [place] within last 30days for shortness of breath and pneumonia. Patient states that he does have Home Health Services but is unsure of provider. He states they have seen him 3 times. He plans on them resuming care. CM will continue to follow and assist as needed with discharge planning / needs. Artist'S Manager: Mojgan Romero DCPIA - Discharge Planning Initial Assessment Updated by [email or web address]: Mojgan Romero on 07/25/18 3:43 pm * Is the patient Alert and Oriented? Yes * How many steps to enter\\exit or inside your home? * PCP can't remember his name. "He is in [place]" * Pharmacy [facility] * Preadmission Environment Home Alone * ADLs Independent * Other Equipment WALKER, CANE, CRUTCHES, * List name and contact numbers for known caregivers / representatives who currently or will assist patient after discharge: ANGELLA - DOESN'T REMEMBER NUMBER * Verbal permission to speak to the caregivers and representatives has been obtained from the patient. N/A * Community resources currently utilized Home Health * Please name any agencies selected above. HE STATES HE IS BEING SEEN BY HH BUT UNSURE OF PROVIDER. * Additional services required to return to the preadmission environment? No * Can the patient safely return to the preadmission environment? Yes * Has this patient been hospitalized within the prior 30 days at any hospital? Yes External Providers External Provider: [facility] [place] Next Contact Date: 08/02/2018 Service Request Date: Service Type: Resolution: Reviewer: Comments: Coverage Notice Reviewer: [id number] Eli Notice Issued Date-Time: 08/02/2018 9:40 Notice Type: IM Discharge Notice Notice Delivered To: Patient Relationship to Patient: Cullet Crusher And Washer Name: Delivery Method: HAND - Hand Delivered Vika Days: Prior Verbal Notification: Recipient Understood Notice: Yes Recipient Signature: Yes Med Rec Note Co-signed by Attending: Coverage Notice Comment: Reviewer: [email or web address] Eli Notice Issued Date-Time: 08/02/2018 9:40 Notice Type: Patient Choice Letter Notice Delivered To: Patient Relationship to Patient: Cullet Crusher And Washer Name: Delivery Method: HAND - Hand Delivered Vika Days: Prior Verbal Notification: Recipient Understood Notice: Yes Recipient Signature: Yes Med Rec Note Co-signed by Attending: Coverage Notice Comment: [facility] Last DP export: 08/02/18 11:10 a Patient Name: CELINA EID Page 66711 at 1234 All edits/amendments must be made on the electronic document DICTATION DATE: 08/02/18 1234 COMMUNICATIONS PROFESSIONAL: DULCE MARIA 08/02/18 1234 RPT#: [id number] DC DATE: STATUS: ADM IN [facility] [address] [place] [address] END OF REPORT
--- NOTE | 2018-08-02 12:37 | NUR ---
Nutrition follow-up: Diet: Regular PO intake ~25% of meals Labs reviewed Wt: 181# +BM Will continue to provide food choices and encourage increased po intake. RDN following.
--- NOTE | 2018-08-02 14:36 | NUR ---
CALLED REPORT TO [facility] IN ICU AND PT GOING TO ROOM 2305. WILL GATHER BELONGINGS AND GET PT TRANSFERRED.
--- NOTE | 2018-08-02 15:10 | NUR ---
TRANSFERRED PT TO ICU.
[2018-08-03] VITALS (24 sets, daily range): BP systolic 76–97; BP diastolic 41–78
[2018-08-03 04:08] LABS: BASOPHILS 0.1 % (0-2); EOSINOPHILS 0 % (0-7); HEMATOCRIT 40.7 % (42.0-54.0); HEMOGLOBIN 13.6 g/dL (13.5-17.5); IMMATURE GRANULOCYTES 0.4 % (0-5); LYMPHOCYTES 1.8 % (15-50); MCH 31.8 pg (26.0-34.0); MCHC 33.4 g/dL (31.0-37.0); MCV 95.1 fL (80.0-100.0); MEAN PLATELET VOLUME 11.1 fL (7.4-10.4); MONOCYTES 1.7 % (2-11); PLATELET COUNT 251 10x3/uL (130-400); RBC 4.28 10x6/uL (4.20-6.10); RDW 13.2 % (11.5-14.5); WBC 22.8 10x3/uL (4.8-10.8)
[2018-08-03 04:11] LABS: CALCIUM 8.2 mg/dL (8.5-10.1); CARBON DIOXIDE 32.7 mmol/L (21.0-32.0); CREATININE - SERUM 1.3 mg/dL (0.6-1.3); POTASSIUM - SERUM 4.7 mmol/L (3.5-5.1)
--- NOTE | 2018-08-03 08:48 | NUR ---
BREAKFAST TRAY PROVIDED AND ASSISTED WITH MEAL TRAY SET UP. PT FEEDS SELF. PT C/O UP DRAFT MASK EARLIER MADE HIM HAVE A PANIC ATTACK. STILL ANXIOUS. ATIVAN PO GIVEN.
--- NOTE | 2018-08-03 16:20 | NUR ---
0900- PT SPILLED ICE WATER ON LINENS AND SELF. BATH AND LINEN CHANGE COMPLETE AFTER PLACED ON BIPAP. PT C/O SOB AFTER BEING OFF BIPAP APPROX 20MIN. PT WAS ON 3LNC AND SPO2 98% BUT DID NOT REAL WELL FOR LONG.
[2018-08-04] VITALS: BP 106/88
[2018-08-04 01:00] VITALS: BP 84/63
[2018-08-04 01:30] VITALS: BP 85/65
[2018-08-04 02:00] VITALS: BP 94/68
[2018-08-04 03:00] VITALS: BP 90/76
[2018-08-04 03:27] LABS: HEMATOCRIT 38.1 % (42.0-54.0); HEMOGLOBIN 12.5 g/dL (13.5-17.5); MCH 32.1 pg (26.0-34.0); MCHC 32.8 g/dL (31.0-37.0); MCV 97.9 fL (80.0-100.0); MEAN PLATELET VOLUME 11.1 fL (7.4-10.4); PLATELET COUNT 244 10x3/uL (130-400); RBC 3.89 10x6/uL (4.20-6.10); RDW 13.4 % (11.5-14.5)
[2018-08-04 03:42] LABS: CALCIUM 7.6 mg/dL (8.5-10.1); CREATININE - SERUM 1.3 mg/dL (0.6-1.3); MAGNESIUM - SERUM 1.8 mg/dL (1.8-2.4); PHOSPHOROUS 3.7 mg/dL (2.5-4.9)
[2018-08-04 03:44] LABS: ANION GAP 14.7 mmol/L (8-16); CARBON DIOXIDE 24.2 mmol/L (21.0-32.0); POTASSIUM - SERUM 4.9 mmol/L (3.5-5.1)
[2018-08-04 04:04] LABS: EOSINOPHILS 1 % (0-7); LYMPHOCYTES 1 % (15-50); MONOCYTES 2 % (2-11); NEUTROPHILS 92 % (40-80)
[2018-08-04 04:05] LABS: TOXIC GRANULATION 2+
[2018-08-04 04:07] LABS: PLATELET ESTIMATE NORMAL; PLATELET MORPHOLOGY NORMAL PLT MORPH
--- NOTE | 2018-08-04 05:55 | NUR ---
DR. HELTON NOTIFIED OF THIS PATIENT'S CODE EVENT AND SUBSEQUENT PASSING. DETAIL OF EVENTS RELAYED.
--- NOTE | 2018-08-04 07:00 | NUR ---
SUMMARY OF EVENTS: 0100 PT WOKE UP FEELING ANXIOUS AND THAT HE COULD'T "CATCH HIS BREATH", PT TACHYPNEIC IN THE 30'S TO 40'S. ATTEMPT TO REDIRECT PT, DISTRACT PT NOT EFFECTIVE, PT ATTEMPTING PURSE LIP BREATHING. OXYGEN DELIVERY SYSTEM - VAPOTHERM WITH 40L. RESPIRATORY THERAPIST CALLED AND BLOOD GASES OBTAINED. DR. GEORGE WAS CALLED AND UPDATED ON PT CONDITION, NEW ORDERS RECEIVED. ATIVAN GIVEN FOR PT COMFORT TO TOLERATE MASK, BIPAP PLACED ON PT. 032 PT TAKING OFF MASK IN A PANIC STATING HE CAN'T BREATHE WITH THE MASK ON, ATTEMPTS TO CALM PT UNSUCCESSFUL BY R/T. PT FOUND BY RN MOANING WITH EMESIS ON FACE/NECK, PT TURNED TO RIGHT SIDE AND MOANED. HEART RHYTHM AGONAL AND CODE BLUE WAS CALLED OVERHEAD AT [address] CLINTON AT BEDSIDE BY 032 (SEE CODE SHEET) THE CODE WAS STOPPED BY DR CLINTON AT 0357 AFTER VIGOROUS RESUSCITATION EFFORTS. PT'S DAUGHTER ARRIVED BY 040 AND SPOKE WITH PHYSICIAN, THEN ARRIVED AT ROOM TO SEE PT. THE DONOR NETWORK NOTIFIED, PHYSICIANS NOTIFIED, HOME NOTIFIED. THE PT'S PERSONAL BELONGINGS, INCLUDING HIS WEDDING RING, GLASSES, CLOTHING, WERE TAKEN HOME BY THE DAUGHTER. [facility] CAME TO TRANSPORT THE PT TO THEIR FACILITY
--- NOTE | 2018-08-05 10:14 | MORECARE ---
CASE MANAGEMENT DISCHARGE SUMMARY PATIENT: CELINA EID UNIT: [id number] ADM DATE: 07/24/18 AGE: 83 : 36 SEX: M ROOM/BED: D.2305 AUTHOR: TESSIE,DOC PHYSICIAN: REFERRING PHYSICIAN: EDWIGE MERCADO MD DATE OF SERVICE: 08/05/18 Discharge Plan Patient Name: CELINA EID Facility: [facility]:[place] : 1935 Planned Disposition: Home Health Service Anticipated Discharge Date: Discharge Date: 08/04/2018 Expected LOS: Initial Reviewer: [email or web address] Initial Review Date: 07/25/2018 Generated: 08/05/18 11:14 am Comments DCP- Discharge Planning Updated by [email or web address]: Sebastian Eli on 08/02/18 11:[address] Patient Name: CELINA EID Encounter No: [id number] : 1935 Primary Insurance: MEDICARE A & B Anticipated DC Date: Planned Disposition: Home Health Service External Planned Provider: [facility] [place] DCP follow-up note: CM RECEIVED PHONE MESSAGE FROM ANGELLA, PT'S DAUGHTER, WHO WANTED TO ENSURE PT HAS HOME HEALTH AND IF POSSIBLE, WANTS INFORMATION ON HOME ASSSITANCE AVAILABLE IN [place]. CM SPOKE TO PT IN ROOM WHO REPORTS ANGELLA IS HIS DAUGHTER AND HAS POWER OF ASPARAGUS BUNCHER IF NEEDED; PT REPORTS CM CAN DISCUSS CARE, TREATMENT AND DISCHARGE PLANNING WITH ANGELLA WHO WILL BE PICKING PT UP FOR DISCHARGE HOME. PT HAS HOME HEALTH WITH [facility] OR [facility] ALREADY, CHOICE LETTER SIGNED BY PT. PT WILL NOT CONSIDER REHAB PLACEMENT INPATIENT OR CARE HOME STATING HE IS GOING HOME AT DISCHARGE. IMPORTANT MESSAGE FROM MEDICARE PROVIDED AND EXPLAINED. CM CALLED [facility] IN [place], , SPOKE TO CHECO WHO ADVISED PT IS ACTIVE AND ON HOSPITAL HOLD. THEY DO HAVE CONSTRUCTION RIGGER THAT CAN ASSESS AT HOME FOR ADDITIONAL HOME NEEDS. CM SPOKE TO SANDRA AT [facility] WHO WILL FAX CM A LIFE UNDERWRITER LIST TO PROVIDE TO PT AND FAMILY IN ROOM. CM FAXED HOSPITAL UPDATE TO [facility] AT [phone]. CM CALLED ANGELLA NAQVI, DAUGHTER, , DISCUSSED HOME HEALTH WITH [facility] AND REFERRAL TO A PLACE FOR MOM. FAMILY IS WANTING TO LOOK INTO PRIVATE DUTY CARE FOR ABOUT ONE WEEK OR SO TO ENSURE PT WILL BE OK AT HOME. CM CALLED A PLACE FOR MOM REFERRAL SERVICE, , PROVIDED DAUGHTERS INFORMATION TO LOCAL ADVISOR, VASYL, WHO WILL SPEAK TO PT'S DAUGHTER FOR POSSIBLE REFERRALS FOR HOME CARE SERVICES. FOR DISCHARGE AND RESUMPTION OF [facility] IN [place], NOTIFY [facility] OF DISCHARGE AT [phone], FAX DISCHARGE INFORMATION TO [facility] AT [phone]. Sebastian Eli, CASE MANGEMENT DCP- Discharge Planning Updated by [email or web address]: Mojgan Romero on 07/29/18 2:[address] CM contacted [facility] to find out about patients home health provider. CM was notified that patient has [facility] in [place]. CM called [facility] [phone] spoke Emelina at [facility] and she stated they planned on resuming care upon discharge. CM will continue to follow and assist as needed with discharge planning / needs. DCP- Discharge Planning Updated by [id number]: Mojgan Romero on 07/25/18 2:[address] Patient Name: CELINA EID Admission Status: ER Accout number: [id number] Admission Date: 07-24-2018 : 1935 Admission Diagnosis: Attending: EDWIGE MERCADO Current LOS: 1 Anticipated DC Date: Planned Disposition: Home Health Service Primary Insurance: MEDICARE A & B Discharge Planning Comments: CM met with patient at bedside. Patient states he lives alone and plans to return to his home upon discharge. Patient states he has been admitted in [place] within last 30days for shortness of breath and pneumonia. Patient states that he does have Home Health Services but is unsure of provider. He states they have seen him 3 times. He plans on them resuming care. CM will continue to follow and assist as needed with discharge planning / needs. Grain Elevator Man: Mojgan Romero DCPIA - Discharge Planning Initial Assessment Updated by [email or web address]: Mojgan Romero on 07/25/18 3:43 pm * Is the patient Alert and Oriented? Yes * How many steps to enter\\exit or inside your home? * PCP can't remember his name. "He is in [place]" * Pharmacy [facility] * Preadmission Environment Home Alone * ADLs Independent * Other Equipment WALKER, CANE, CRUTCHES, * List name and contact numbers for known caregivers / representatives who currently or will assist patient after discharge: ANGELLA - DOESN'T REMEMBER NUMBER * Verbal permission to speak to the caregivers and representatives has been obtained from the patient. N/A * Community resources currently utilized Home Health * Please name any agencies selected above. HE STATES HE IS BEING SEEN BY HH BUT UNSURE OF PROVIDER. * Additional services required to return to the preadmission environment? No * Can the patient safely return to the preadmission environment? Yes * Has this patient been hospitalized within the prior 30 days at any hospital? Yes Coverage Notice Reviewer: [id number] Eli Notice Issued Date-Time: 08/02/2018 9:40 Notice Type: IM Discharge Notice Notice Delivered To: Patient Relationship to Patient: Roving Department End Finder Name: Delivery Method: HAND - Hand Delivered Vika Days: Prior Verbal Notification: Recipient Understood Notice: Yes Recipient Signature: Yes Med Rec Note Co-signed by Attending: Coverage Notice Comment: Reviewer: BETSY Eli Notice Issued Date-Time: 08/02/2018 9:40 Notice Type: Patient Choice Letter Notice Delivered To: Patient Relationship to Patient: Roving Department End Finder Name: Delivery Method: HAND - Hand Delivered Vika Days: Prior Verbal Notification: Recipient Understood Notice: Yes Recipient Signature: Yes Med Rec Note Co-signed by Attending: Coverage Notice Comment: [facility] Last DP export: 08/02/18 11:34 a Patient Name: CELINA EID Page 16430 at 1014 All edits/amendments must be made on the electronic document DICTATION DATE: 08/05/18 1013 WAGON PERSON: DULCE MARIA 08/05/18 1013 RPT#: [id number] DC DATE:08/04/18 STATUS: DIS IN [facility] [address] [place] [address] END OF REPORT
== END 2018-08-04 08:00 ==
LOC: D.ER 12:49 → D.M2 15:14 → D.EDHOLD 15:14 → D.ICU 15:14 → D.M2 07-29 18:16 → D.ICU 08-02 15:12
PROVIDERS: Family Medicine; Internal Medicine Interventional Cardiology; Internal Medicine Nephrology; Internal Medicine Pulmonary Disease; ADMIT Emergency Medicine
PROC: 4A023N7 Measurement of Cardiac Sampling and Pressure, Left Heart, Percutaneous Approach (ICD-10-PCS; 2018-07-29)
PROC: B2111ZZ Fluoroscopy of Multiple Coronary Arteries using Low Osmolar Contrast (ICD-10-PCS; principal; 2018-07-29 08:10)
PROC: 5A12012 Performance of Cardiac Output, Single, Manual (ICD-10-PCS; 2018-08-04)
PROC: 0BH17EZ Insertion of Endotracheal Airway into Trachea, Via Natural or Artificial Opening (ICD-10-PCS; 2018-08-04)
DX: I21.A1 Myocardial infarction type 2 (principal); J18.1 Lobar pneumonia, unspecified organism; J96.01 Acute respiratory failure with hypoxia; I50.43 Acute on chronic combined systolic (congestive) and diastolic (congestive) heart failure; I13.0 Hypertensive heart and chronic kidney disease with heart failure and stage 1 through stage 4 chronic kidney disease, or unspecified chronic kidney disease; D68.9 Coagulation defect, unspecified; N17.9 Acute kidney failure, unspecified; I48.91 Unspecified atrial fibrillation; I25.110 Atherosclerotic heart disease of native coronary artery with unstable angina pectoris; E87.6 Hypokalemia; N18.9 Chronic kidney disease, unspecified; I08.1 Rheumatic disorders of both mitral and tricuspid valves; I27.20 Pulmonary hypertension, unspecified; I95.9 Hypotension, unspecified; N40.0 Benign prostatic hyperplasia without lower urinary tract symptoms; R44.1 Visual hallucinations; F41.9 Anxiety disorder, unspecified; R53.81 Other malaise